=== PATIENT | male | born 1945 | race Caucasian/White ===

== ENCOUNTER → 2016-11-26 | Outpatient (CLI) | payer BC ==
[~2016-11-26] MED LIST: ASPI81TA28 PO; BRL90 PO; CHOL2000 PO; DICY20TA35 PO; LATA0.5S OP; LPT40 PO; METO25TA3 PO; MULT-506 PO; NTRSLP4 SL; PRAV20TA PO; PRLSR20 PO; VITACAP37; lupron IM
== END | disposition home or self-care (01) ==
LOC: C.MAMM 08:44
PROVIDERS: ATTEND Physician Assistant Medical
DX: C61 Malignant neoplasm of prostate (principal); T38.905 Adverse effect of unspecified hormone antagonists; M85.852 Other specified disorders of bone density and structure, left thigh

== ENCOUNTER → 2017-02-05 | Outpatient (CLI) | payer BC ==
[2017-02-05 14:27] VITALS: BP 110/68; PULSE 75; TEMP 36.9; O2SAT 97
--- NOTE | 2017-02-05 16:31 | Radiation Oncology Follow-Up ---
Radiation Oncology Follow-Up Date of Visit Feb 05, 2017. Reason For Visit One-month follow-up a cancer survivorship care plan Radiation Completion Date 01/01/17 Diagnosis (1) Prostate cancer Status: Acute Onset Date: 07/10/2015 Location: both lobes of prostate Histology Subtype: adenocarcinoma Stage: ll Permanent Comment: Rise in PSA, pretreatment PSA 10.33 Status post prostate biopsy 07/10/2015 Adenocarcinoma of the prostate Ramone 4+3 and 4+4 Status post Robotic Assisted Laporoscopic Prostatectomy 09/03/2015 Adenocarcinoma [place] 4+4 with PNI pT2c pNX Post prostatectomy rise of PSA now at 0.5 Initiation of hormone suppression. Status post completion of radiation therapy 01/01/2017 received 7040 cGy Last Edited By: Sherry Ramirez on Jan 16, 2017 08:23 History of Present Illness Mr. Engle is a 71-year-old male who has a family history of prostate cancer. The patient's father was diagnosed with prostate cancer and at age 73 from metastatic bony disease. The patient does have a son age 46 and he is going to start screening procedures. The patient was followed with prostate-specific antigens. On 08/23/2014 the prostate-specific antigen was 6.11. On 02/14/2015 the prostate-specific antigen increased to 7.95 and on 05/07/2015 the prostate- specific antigen was 10.33. The free prostate-specific antigen was 1.9 which was abnormal increasing the probability of prostate cancer. The patient was seen by the urology group of [facility] by Dr. Raul Lyle. On 07/10/2015 the patient underwent ultrasound-guided prostate biopsies. A total of 12 samples were taken. Biopsies from the right apex, right lateral apex, right mid, right lateral mid, right base, right lateral base revealed benign prostatic tissues. Biopsy from the left apex, left lateral base and left base were benign without evidence of neoplasia. Biopsies from the left lateral mid gland revealed prostatic adenocarcinoma Ramone grade 4+3 involving 10% of the core tissue sample. Biopsy from the left mid gland was positive for prostatic adenocarcinoma [place] grade 4+4 involving 20% of the core tissue sample. 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 Accession number: [id number]. Patient ultimately opted to proceed with a robotic-assisted laparoscopic prostatectomy and pelvic lymph node dissection on 09/03/2015. This confirmed a prostatic adenocarcinoma [place] grade 4+4 with a tertiary pattern 3. The largest continuous focus of tumor measured 2.5 cm representing 50% of the left lobe of the prostate. The right side showed approximate 5% involvement. Perineural invasion was seen. The bladder base, apical and posterior resection margins were negative. The tumor did not involve the seminal vesicles. Lymph nodes were sampled but no lymph node tissue was appreciated. Final pathologic stage was therefore a pT2c Nx Mx. The patient's prostate-specific antigen became undetectable. In May 2016 the prostate-specific antigen was 0.01. In August 2016 however the prostate- specific antigen increased to 0.38. On 09/11/2016 the prostate-specific antigen was repeated and it increased to 0.5. This was felt to be consistent with a biochemical failure. Dr. Raul Mccall ordered restaging procedures. A bone scan performed on 09/25/2016 showed no focal areas of increased activity to suggest metastatic disease. There was stable osseous degenerative and postsurgical changes. There was a healed left rib and sacral fractures. CT scan of the abdomen and pelvis with contrast was also performed. This showed diverticulosis without evidence of diverticulitis. There was changes consistent with a history of prostatectomy. Aortic atherosclerosis was noted. No destructive lesions were appreciated.If significantly enlarged lymph nodes were noted. Small prominent mesenteric lymph nodes were noted. Paige no evidence of metastatic disease appreciated. Dr. Mccall started the patient on hormonal suppression with a 1 month Lupron injection. He was kind enough to ask us to see the patient to discuss the role of salvage radiation. It is for this reason the patient was seen in referral. Hormone suppression was continued. He underwent CT simulation and then completed salvage radiation therapy. He received 7040 cGy. This was completed 01/01/2017. Interim History He is been doing well over the past month in regards to his urinary status. Today gives an AUA score of 4. He completed and expanded prostate cancer index composite for clinical practice and gave a score of 2 of 12 and urinary incontinence symptoms. He gave a score of 2 of 12 and urinary irritation symptoms. He gave a score of 4 of 12 of bowel symptoms. He gave a score of 9 of 12 and sexual symptoms. He gave a score of one of 12 in hormonal vitality symptoms. His total was 18 of 60. He continues on the hormone suppression. His next injection is scheduled for May. He does get hot flashes but is able to tolerate these. Allergies Coded Allergies: No Known Allergies (Unverified , 11/13/15) Home Medications Scheduled Aspirin (Aspirin Ec), 81 MG PO HS Cholecalciferol (Vitamin D3), 1 CAP PO DAILY Dicyclomine Hcl (Bentyl), 1 TAB PO BID Latanoprost (Xalatan 0.005% Oph Desirae), 1 DROPS OP HS Multivitamin (Multivitamin), 1 TAB PO DAILY Omeprazole (Prilosec), 20 MG PO DAILY Pravastatin (Pravachol ), 20 MG PO HS Vitamin E (E-400), DAILY [lupron ], 45 MG IM q 6 months Review of Systems Gastrointestinal: Symptoms: WNL GI Comments: Occ diarrhea/constipation Oral: Symptoms: No Problems Respiratory: Symptoms: WNL Urinary: Symptoms: WNL, Nocturia Comments: Nocturia x 2, Urgency, See AUA & EPIC Skin: Symptoms: No Problems Additional Notes: He completed a distress management report and answered "no" to all questions. Physical Exam Vital Signs Date Time Temp Pulse Resp B/P (MAP) Pulse Ox O2 Delivery O2 Flow Rate FiO2 02/05/17 14:27 36.9 75 16 110/68 97 Fatigue: None General Appearance: no apparent distress Eyes: normal inspection, EOMI ENT: normal ENT inspection, hearing grossly normal Respiratory/Chest: lungs clear, no respiratory distress, no accessory muscle use Cardiovascular: regular rate, rhythm, no gallop, no murmur Neurologic/Psychiatric: no motor/sensory deficits, alert, normal mood/affect Skin: warm/dry Laboratory Studies Test 02/05/17 14:30 Prostate Specific Antigen < 0.010 ng/ml (0.000-4.000) Assessment & Plan Plan: A PSA was drawn today. He'll be notified as to results. Continue follow- up with his urologist and primary care provider. We scheduled his next appointment for November 2017. This will be 6 months following his next appointment with Dr. Mccall. He stated he'll be having an injection when he sees Dr. Mccall. The suppression is planned for a total of 2 years. He is scheduled for a recheck PSA prior to his visit with Dr. Mccall. Total Time In Follow-Up I spent 20 minutes to you with the patient performing examination. I spent 15 minutes reviewing information in completing this note. Copy To Jennifer Biggs PA-C; Raul Mccall D.O.
== END | disposition home or self-care (01) ==
LOC: C.ONC 14:19
PROVIDERS: ATTEND Physician Assistant Medical
DX: Z08 Encounter for follow-up examination after completed treatment for malignant neoplasm (principal); Z92.3 Personal history of irradiation; Z85.46 Personal history of malignant neoplasm of prostate

== ENCOUNTER 2017-04-03 08:04 | Observation (INO) | payer BC ==
[~2017-04-03] VITALS: Ht 177.8 cm; Wt 97.8 kg
[2017-04-03] VITALS (13 sets, daily range): BP systolic 103–123; BP diastolic 61–77; PULSE 61–71; TEMP 36.4–36.9; O2SAT 95–99; Ht 177.8 cm; Wt 97.8 kg
[~2017-04-03 08:04] MED LIST changes: -BRL90 PO; -LPT40 PO; -NTRSLP4 SL
--- NOTE | 2017-04-03 08:16 | History & Physical Bridge Note ---
H&P Re-Evaluation Bridge Note: I have examined the patient, reviewed the History & Physical and in the interval since the performance of the History & Physical I have noted the following changes of clinical significance: No changes noted
[2017-04-03 09:05] LABS: HEMATOCRIT 40.1 % (42-52); MEAN CELL VOLUME 94.1 fL (80-100); MEAN CORPUSCULAR HEMOGLOBIN 31.9 pg (25-34); MEAN PLATELET VOLUME 9.2 fL (7.4-10.4); PLATELET COUNT 158 K/uL (130-400); RED BLOOD COUNT 4.26 M/uL (4.7-6.1)
[2017-04-03 09:24] LABS: MEAN CORPUSCULAR HGB CONC 33.9 g/dl (32-36)
[2017-04-03 09:25] LABS: CALCIUM 9.4 mg/dl (8.5-10.1); CREATININE 1.2 mg/dl (0.60-1.40); POTASSIUM 4.6 mmol/L (3.5-5.1)
[2017-04-03 09:26] LABS: PROTHROMBIN TIME (PATIENT) 10.7 SECONDS (9.0-12.0)
[2017-04-03] MEDS ORDERED: NiCARDipine HCL INJ 2.5 MG/ML 10 ML AMP ONE (10:00)
[2017-04-03] MEDS ORDERED: FENTANYL CITRATE INJ 50 MCG/1 ML 2 ML VIAL ONE (10:00)
[2017-04-03] MEDS ORDERED: HEPARIN SOD (PORCINE) 1000 UNIT/ML 10 ML VIAL ONE ×2 (10:00→11:36)
[2017-04-03] MEDS ORDERED: MIDAZOLAM HCL 1 MG/ML 2ML VIAL ONE (10:00)
[2017-04-03] MEDS ORDERED: NITROGLYCERIN/D5W 100MCG/ML 20ML SYR ONE (10:00)
[2017-04-03] MEDS ORDERED: TICAGRELOR 90 MG TAB PO ONE (11:37)
--- NOTE | 2017-04-03 11:46 | Procedure Note ---
Pre-Mod Sedation Assessment General Date of Moderate Sedation: Apr 03, 2017. Review Cardiovascular: regular rate, rhythm, no edema Abdomen: normal bowel sounds, non tender Lungs: chest non-tender, lungs clear Airway Class: III Pre-Sedation Airway Assessment Oral Cavity: WNL Able to Visualize Vocal Cords: No Short Thick Neck: No Hx of Sleep Apnea: No Smoking Status: Former Smoker Mallampati Classification: Class III ASA Classification: Class III Procedure Planning Contraindications-for Mod Sed: None Yes Notes The planned sedation has been discussed with the patient and consent obtained. I have identified the patient, determined the appropriateness of sedation and have assessed the patient immediately prior to the procedure. All medicine(s) and interventions are by my order.
--- NOTE | 2017-04-03 11:47 | Procedure Note ---
Post-Mod Sedation Assessment General Date of Moderate Sedation Apr 03, 2017. Vital Signs: Vital Signs Past 12 Hours Date Time Temp Pulse Resp B/P (MAP) Pulse Ox O2 Delivery O2 Flow Rate FiO2 04/03/17 11:35 65 16 112/61 (78) 95 Room Air 04/03/17 08:34 36.6 68 18 122/61 99 Room Air Review - Discharge Criteria Vital Signs Stable: Yes Alert/Oriented/Conversant: Yes Returned to Baseline Mental St: Yes Nausea Absent/Minimal: Yes Pain/Discomfort/Absent/Minimal: Yes Normal/Baseline Respirations: Yes Active Bleeding?: No Pt Received D/C Instructions: N/A Prescriptions Given: None Specific Proced. D/C Criteria Distal Pulses Present (Cardiac: Yes Groin site assessed-Card Cath: N/A Voided Prior To Discharge: N/A Discharged Patients Adult Escort/Transportation: Yes
--- NOTE | 2017-04-03 12:08 | Cardiac Catheterization ---
Procedure Note Procedure Date Apr 03, 2017. Pre-Procedure Diagnosis Angina AUC Score 7 Post-Procedure Diagnosis Severe CAD, Successful PCI, Normal Intracardiac Pressures Procedure(s) Performed Coronary Angiography, Left Heart Cath, Drug Eluting Stent Commercial Light Fixture Assembler Luis F Engine Service Repairer(s) Nam Estimated Blood Loss 20 Medication(s) Fentanyl, Heparin, Nitroglycerin, Versed, Lidocaine 1% Ticagrelor Summary of Findings Indication: Accelerating typical angina Access: 6Fr slender right radial artery Catheters: [place], JL3.5; JR4 guide Findings: LM - Short, luminal irregularities. LAD - Moderate caliber, luminal irregularities, wraps around apex. 1st diagonal with 90% ostial stenosis. Circumflex - Moderate caliber vessel, 30% proximal stenosis, OM2 with focal 99% stenosis. RCA - Dominant, diffuse up to 95% stenosis in the proximal to mid segment; diffuse mid to distal disease up to 80%. Luminal irregularities in PDA/PLB. LVEDP - 5 -- PCI -- Antithrombotic therapy: Heparin, Ticagrelor Procedure: RCA cannulated with JR4 guide Geothermal Operations Engineer 50 wire passed across lesions into distal vessel Distal to proximal segments predilated with 2.5 compliant balloon Distal RCA stented with 2.5 x 30 Dendron Resolute Mid RCA stented with 2.75 x 30 [place] Resolute Proximal-mid RCA stented with 3.0 x 22 Dendron Resolute Stents post-dilated with 3.25 noncompliant balloon IC vasodilators administered for spasm Post procedure LOLLY 3 flow, stent well expanded with minimal residual stenosis and no apparent cardiac complications. Arterial Closure: TR Band Summary: 1. Severe multi-vessel coronary artery disease - Diffuse RCA disease 95% early-mid, 80% mid to distal segment disease - OM2 with focal 99% stenosis - 1st diagonal with 90% proximal stenosis 2. Normal intracardiac filling pressure 3. Successful PCI of RCA with proximal to distal RCA with 3 overlapping drug- eluting stents (3.0 x 22, 2.75 x 30, 2.5 x 30 [place] MAGALY) Recommendations: To PCU for continued monitoring Loaded with Ticagrelor 180 mg in carpenter labor supervisor Continue dual-antiplatelet therapy for 1 year Continue statin, ASCVD risk factor modification Consult cardiac Rehab Plan for staged PCI of OM2 +/- diagonal in next 1-2 weeks. Hemodynamics Rest Ao: 96/58/75 Final Ao: 102/55/76 LV: 96/5 Recommendations PCI without planned CABG Specimens None Radiation Exposure (mGy) 4393 Contrast (mls) 200 Visi Fluids (cc crystalloids) 152 NS Drains None Anesthesia moderate Procedural Complication(s) None Disposition PCU ACC Data Cardiac Status Clinical evaluation leading to the procedure CAD Presntation: Unstable angina Anginal Classification: CCS III Heart Failure: No, NYHA Class: CCS I Cardiogenic Shock w/in 24Hrs: No Cardiac Arrest w/in 24Hrs: No Imaging studies past 6 months: No Stress studies past 6 months: No Coronary Anatomy Dominant: Right Left Main (% Stenosis): Normal LAD (% Stenosis): Normal D1 (% Stenosis): Proximal (90) Circumflex (% Stenosis): Proximal (30) OM2 (% Stenosis): Proximal (99) RCA (% Stenosis): Mid (95), Distal (80) Diagnostic Physician's Name: Raul Kerns MD Status: Elective Closure Device Percutaneous Entry Location: Radial Closure Device: Radial Band Recommendations: PCI without planned CABG PCI Indication: Unstable Angina Lesion Segment Name: RCA Culprit Artery: Yes Stenosis Prior to Rx (%): 95 Chronic Total Occlusion: No IVUS: No FFR: No Pre-Procedure LOLLY Flow: 3 Previously Treated Lesion: No Lesion Complexity: Non-High/Non-C Lesion Length (mm): 60 Thrombus Present: No Bifurcation Lesion: No Guidewire Across Lesion: Yes Guidewire: Stenosis Post-Procedure (%): 0 Post-Procedure LOLLY Flow: 3 Device(s) Deployed: Yes Intraprocedure Events Significant Dissection: No Perforation: No
[2017-04-03] MEDS ORDERED: NITROGLYCERIN 0.4 MG SL PER TAB CHARGE SL PRN (12:30)
[2017-04-03] MEDS ORDERED: SODIUM CHLORIDE 0.9% 1000ML 1,000 ML IV SCH (12:30)
[2017-04-03] MEDS ORDERED: ACETAMINOPHEN 325 MG TAB PO PRN (12:30)
[2017-04-03] MEDS ORDERED: ONDANSETRON INJ 2 MG/ML 2 ML VIAL IV PRN (12:30)
[2017-04-03] MEDS ORDERED: IV FLUIDS COMPLETED PRN (12:45)
[2017-04-03] MEDS ORDERED: ASPIRIN 81 MG ECTAB PO SCH (21:00)
[2017-04-03] MEDS ORDERED: LATANOPROST 0.005% OP SOLN 2.5 ML BTL OP SCH (21:00)
[2017-04-03] MEDS: TICAGRELOR 90 MG TAB PO SCH (21:49)
[2017-04-03] MEDS: DICYCLOMINE HCL 20 MG TAB PO SCH (21:50)
[2017-04-04 02:38] VITALS: BP 111/55; PULSE 79; TEMP 36.9; O2SAT 96
[2017-04-04] MEDS ORDERED: COUGH DROP (SUGAR FREE) LOZ 24 LOZ/1 BOX ONE (06:41)
[2017-04-04] MEDS ORDERED: NURSING VERBAL MED ORDER ONE (06:45)
[2017-04-04] MEDS ORDERED: COUGH DROP (SUGAR FREE) LOZ 24 LOZ/1 BOX PO PRN (06:45)
[2017-04-04 07:46] LABS: BASO % 0.4 %; BASO ABS # 0.02 K/uL (0-0.2); COMPLETE YES; EOS % 3.8 %; HEMATOCRIT 39.4 % (42-52); IG% 0.2 %; LYMPH % 14.3 %; LYMPH ABS # 0.72 K/uL (1.2-3.4); MEAN CELL VOLUME 92.7 fL (80-100); MEAN CORPUSCULAR HEMOGLOBIN 32.2 pg (25-34); MEAN CORPUSCULAR HGB CONC 34.8 g/dl (32-36); MEAN PLATELET VOLUME 9.5 fL (7.4-10.4); MONO % 9.5 %; NEUT % 71.8 %; PLATELET COUNT 156 K/uL (130-400); RED BLOOD COUNT 4.25 M/uL (4.7-6.1); WHITE BLOOD COUNT 5.03 K/uL (4.8-10.8)
[2017-04-04 07:59] VITALS: BP 123/75; PULSE 70; TEMP 36.8; O2SAT 97
[2017-04-04 08:26] LABS: BUN/CREATININE RATIO 15.8 (10-20); CALCIUM 9.1 mg/dl (8.5-10.1); CREATININE 1.1 mg/dl (0.60-1.40); POTASSIUM 3.8 mmol/L (3.5-5.1)
[2017-04-04] MEDS ORDERED: METOPROLOL SUCC 25MG EXT REL TAB PO SCH (09:00)
[2017-04-04] MEDS ORDERED: ATORVASTATIN 40 MG TAB PO SCH (09:00)
[2017-04-04] MEDS ORDERED: PANTOprazole SOD 40 MG TAB PO SCH (09:00)
[2017-04-04] MEDS ORDERED: CHOLECALCIFEROL 1000 INTER.UNIT TAB PO SCH (09:00)
[2017-04-04] MEDS ORDERED: MULTIVITAMIN TAB PO SCH (09:00)
[2017-04-04] MEDS ORDERED: LPT40 PO (09:52)
[2017-04-04] MEDS ORDERED: BRL90 PO (09:52)
[2017-04-04] MEDS ORDERED: NTRSLP4 SL (09:52)
--- NOTE | 2017-04-04 09:54 | Discharge Instructions ---
Discharge Instructions Procedure Procedure Date: Apr 04, 2017. Reason for Visit: Chest Pain *Dr Kerns Doing*. Discharge Discharge Date: Apr 04, 2017. Discharge Diagnosis: Coronary artery disease post coronary stenting Last Recorded Wt (Kilograms): 97.800 Anesthesia Post Anesthesia Instructions: If you have had General Anesthesia or IV Sedation: * Do not drive today. * Resume driving when surgeon permits. * Do not make important decisions or sign legal documents today. * Call surgeon for: 1. Temperature elevations greater than 101 degrees F. 2. Uncontrollable pain. 3. Excessive bleeding. 4. Persistent nausea and vomiting. 5. Medication intolerance (nausea, vomiting or rash). * For nausea and vomiting use only clear liquids such as: tea, soda, bouillon until nausea subsides, then gradually increase diet as tolerated. * If you have any concerns or questions, call your surgeon's office. If physician is unavailable and it is an emergency, call 911 or go to the nearest emergency room. Instructions Activity Recommendations: limitations as noted below Recommended Home Diet: low cholesterol Allergies: Coded Allergies: No Known Allergies (Unverified , 11/13/15) Follow Up Additional Instructions: ACTIVITY RECOMMENDATIONS: It is common to feel weak and fatigue for a few days. * Do not drive or operate any motorized equipment for the next 2 days. * Limit stair usage (2 or 3 trips a day only) for the next 2 days. * Do not lift anything heavier than 10 pounds for the next three days. * Do not engage in vigorous exercise or any sports for the next five days. * You may shower the day after your procedure, but do not immerse the area for three days. Cleanse the site gently with soap and water. SPECIAL CARE INSTRUCTIONS: * You may replace the pressure dressing or band-aid the morning after the procedure. * After your procedure, it is normal to have a small bruise or small lump at the site. Examine your site daily for any change in the bruise or lump, redness, swelling, drainage or numbness. Notify your doctor if any change. BLEEDING: * If there is a small amount of bleeding at the site, lie down and apply firm pressure with a clean cloth for ten minutes. When the bleeding stops, lie quietly keeping the procedure limb straight for six hours. Notify your doctor as soon as possible. * If the bleeding does not stop after ten minutes or if there is a large amount of bleeding or spurting, call 911 immediately. Continue to lie down and hold firm pressure until help arrives. SKIN IRRITATION: * You may experience some redness and/or swelling in the area where radiation was administered. If any skin irritation occurs, please contact your family physician. FOLLOW UP VISIT: Keep any scheduled doctor appointments. Follow-up with: Plan for repeat cardiac catheterization with stenting on next week. Cardiology office will call you on thursday. If issues in interim call Dr. Kerns [phone] [facility] Recommendations: Call your doctor if: * Temperature above 101 degrees * Pain not relieved by pain medicine ordered * There is increased drainage or redness from any incision * You have any unanswered questions or concerns. Your Doctors Instructions noted above were prepared by provider Jamie Kerns. Patient Signature Section: Patient Instructions Signature Page Ramses Engle Patient (or Guardian) Signature/Date: I have read and understand the instructions given to me by my caregivers. Caregiver/RN/Doctor Signature/Date: The above-named patient and/or guardian has received patient instructions on this date. + Original Patient Signature Page (only) stays with chart. Please make copy for patient.
[2017-04-04] MEDS: TICAGRELOR 90 MG TAB PO SCH (09:58)
[2017-04-04] MEDS: DICYCLOMINE HCL 20 MG TAB PO SCH (09:58)
[2017-04-04 10:30] VITALS: BP 123/75; PULSE 70; TEMP 36.8; O2SAT 97
[2017-04-09] MEDS ORDERED: PRAV20TA PO (07:11)
--- NOTE | 2017-04-23 01:03 | DISCHARGE SUMMARY ---
PROCEDURES: 1. Coronary angiography. 2. PCI of RCA with 3 overlapping drug-eluting stents. HISTORY OF PRESENT ILLNESS: Mr. Engle is a 71-year-old man with history of dyslipidemia, GERD, peptic ulcer disease and prostate cancer; who was initially seen in the outpatient setting for accelerating angina over the last several weeks. The patient had no prior cardiac history prior to his initial presentation. HOSPITAL COURSE: The patient underwent diagnostic angiography via his right radial artery. Cardiac catheterization showed his LAD to be patent with luminal irregularities, his first diagonal was small and had 90% ostial stenosis. Circumflex was a moderate caliber vessel with a focal 99% stenosis in his second obtuse marginal. His right coronary artery was dominant and had diffuse up to 95% stenosis in the proximal and mid segment and diffuse [id number] disease up to 80%. Decision was made to proceed with PCI of his RCA, and ended up having 3 overlapping drug-eluting stents placed (3.0 x 22, 2.75 x 30, 2.5 x 30) [place] drug-eluting stents. A good angiographic result was obtained. The patient was admitted to telemetry for observation post procedure. He had no recurrent chest pain overnight. He had no significant arrhythmia on telemetry. On the morning of discharge, patient was feeling well and was thought safe for discharge to home. Plan was for patient to return in the next 1-2 weeks for staged intervention of his obtuse marginal and potentially his small first diagonal. DISCHARGE MEDICATIONS: The patient was discharged on atorvastatin 80, sublingual nitroglycerin tabs, ticagrelor 90 mg b.i.d., aspirin 81, cholecalciferol 2000 units daily, Bentyl 1 tab p.o. b.i.d., latanoprost eyedrops 1 drop at bedtime, multivitamin 1 tab daily, omeprazole 20 mg daily, vitamin E and Lupron injections q. 6 hours. FOLLOWUP: The patient will follow up for procedure as discussed above. NICOLAS
== END 2017-04-04 11:20 | disposition home or self-care (01) ==
LOC: C.CATH 08:04 → C.2T 11:25 → ENRESERV 11:25 → EDBEDREQ 12:09
PROVIDERS: ADMIT Internal Medicine Interventional Cardiology; ATTEND Internal Medicine Interventional Cardiology
DX: I25.119 Atherosclerotic heart disease of native coronary artery with unspecified angina pectoris (principal); I10 Essential (primary) hypertension; E78.5 Hyperlipidemia, unspecified; K21.9 Gastro-esophageal reflux disease without esophagitis; N40.0 Benign prostatic hyperplasia without lower urinary tract symptoms; M48.06 Spinal stenosis, lumbar region; Z79.82 Long term (current) use of aspirin; Z87.891 Personal history of nicotine dependence; Z85.46 Personal history of malignant neoplasm of prostate; Z90.79 Acquired absence of other genital organ(s); Z80.42 Family history of malignant neoplasm of prostate; Z80.3 Family history of malignant neoplasm of breast; Z82.62 Family history of osteoporosis

== ENCOUNTER → 2017-04-09 | Day surgery (SDC) | payer BC ==
[~2017-04-09] VITALS: Ht 177.8 cm; Wt 95.0 kg
[~2017-04-09] MED LIST changes: +ASPIRIN 81 MG CHEW ONE; +BRL90 PO; +FENTANYL CITRATE INJ 50 MCG/1 ML 2 ML VIAL ONE; +HEPARIN SOD (PORCINE) 1000 UNIT/ML 10 ML VIAL ONE; +LPT40 PO; +MIDAZOLAM HCL 1 MG/ML 2ML VIAL ONE; +NITROGLYCERIN/D5W 100MCG/ML 20ML SYR ONE; +NTRSLP4 SL; +NiCARDipine HCL INJ 2.5 MG/ML 10 ML AMP ONE
[2017-04-09 07:19] VITALS: BP 121/65; PULSE 67; TEMP 36.6; O2SAT 98; Ht 177.8 cm; Wt 95.0 kg
--- NOTE | 2017-04-09 10:41 | Procedure Note ---
Pre-Mod Sedation Assessment General Date of Moderate Sedation: Apr 09, 2017. Vital Signs: Vital Signs Past 12 Hours Date Time Temp Pulse Resp B/P (MAP) Pulse Ox O2 Delivery O2 Flow Rate FiO2 04/09/17 07:19 36.6 67 16 121/65 98 Room Air Review Cardiovascular: regular rate, rhythm, no edema Abdomen: normal bowel sounds, non tender Lungs: chest non-tender, lungs clear Airway Class: II Pre-Sedation Airway Assessment Oral Cavity: WNL Able to Visualize Vocal Cords: No Short Thick Neck: No Hx of Sleep Apnea: No Smoking Status: Never Smoker Mallampati Classification: Class III ASA Classification: Class II Procedure Planning Contraindications-for Mod Sed: None Yes Notes The planned sedation has been discussed with the patient and consent obtained. I have identified the patient, determined the appropriateness of sedation and have assessed the patient immediately prior to the procedure. All medicine(s) and interventions are by my order.
--- NOTE | 2017-04-09 10:42 | Procedure Note ---
Post-Mod Sedation Assessment General Date of Moderate Sedation Apr 09, 2017. Vital Signs: Vital Signs Past 12 Hours Date Time Temp Pulse Resp B/P (MAP) Pulse Ox O2 Delivery O2 Flow Rate FiO2 04/09/17 07:19 36.6 67 16 121/65 98 Room Air Review - Discharge Criteria Vital Signs Stable: Yes Alert/Oriented/Conversant: Yes Returned to Baseline Mental St: Yes Nausea Absent/Minimal: Yes Pain/Discomfort/Absent/Minimal: Yes Normal/Baseline Respirations: Yes Active Bleeding?: No Pt Received D/C Instructions: N/A Prescriptions Given: None Specific Proced. D/C Criteria Distal Pulses Present (Cardiac: Yes Groin site assessed-Card Cath: N/A Voided Prior To Discharge: N/A Discharged Patients Adult Escort/Transportation: Yes
--- NOTE | 2017-04-09 11:10 | Cardiac Catheterization ---
Procedure Note Procedure Date Apr 09, 2017. Pre-Procedure Diagnosis Angina AUC Score 7 Post-Procedure Diagnosis Severe CAD, Successful PCI Procedure(s) Performed Left Heart Cath, PTCA, Drug Eluting Stent Sr. Operations Manager Luis F Environmental Systems Coordinator(s) Edward Estimated Blood Loss 15 Medication(s) Fentanyl, Heparin, Nicardipine, Nitroglycerin, Versed, Lidocaine 1% Summary of Findings Indication: Staged PCI Access: 6Fr right radial artery Catheters: EBU 3.5 guide Findings: Patient with accelerating angina leading to cardiac cath and PCI of RCA last week. Returns today for staged PCI of OM2 -- PCI -- Antithrombotic therapy: Heparin, on ticagrelor Procedure: LM cannulated with EBU 3.5 guide BMW wire passed across lesion into distal vessel OM2 lesion predilated with 2.0 compliant balloon Dilated lesion stented with 2.25 x 22 Resolute MAGALY Stent post-dilated with stent balloon IC vasodilators administered for spasm Post procedure LOLLY 3 flow, stent well expanded with minimal residual stenosis and no apparent cardiac complications. BMW wire removed from OM and placed into 1st diagonal Angioplasty of proximal 1st diagonal 90% stenosis with 2.0 compliant balloon. Lesion appeared calcified and unable to fully expand balloon. As 1st diagonal was small vessel (~2.0) decision made to forgo more aggressive attempts at lesion dilation/stenting. No additional stents placed. Post PTCA stenosis unchanged. LOLLY 3 flow, no apparent complications. Arterial Closure: TR Band Summary: 1. Successful PCI of OM2 with single MAGALY (2.25 x 22 Resolute). 2. Attempted PTCA of small 1st diagonal with compliant balloon unsuccessful. Recommendations: To medical laboratory assistant holding for additional monitoring. If stable will discharge later today. Continue dual-antiplatelet therapy with ASA/ticagrelor for 1 year Continue statin, ASCVD risk factor modification Cardiac rehab Continued anti-anginals for residual disease -- if in the future were to have refractory angina more aggressive attempts at stenting of 1st diagonal could be considered. Hemodynamics Rest Ao: 90/52/68 Final Ao: 81/51/62 LV: 112/4 Recommendations PCI without planned CABG Specimens None Radiation Exposure (mGy) 2395 Contrast (mls) 135 Visipaque Fluids (cc crystalloids) 150 ml Drains None Anesthesia Moderate Procedural Complication(s) None Disposition Internal Combustion Engine Assembler Holding/Recovery ACC Data Cardiac Status Clinical evaluation leading to the procedure CAD Presntation: Unstable angina Anginal Classification: CCS III Heart Failure: NYHA Class: CCS I Closure Device Closure Device: Radial Band Recommendations: PCI without planned CABG Lesion Segment Name: OM2 Culprit Artery: Yes Stenosis Prior to Rx (%): 95 Chronic Total Occlusion: No IVUS: No FFR: No Pre-Procedure LOLLY Flow: 3 Previously Treated Lesion: No Lesion Complexity: Non-High/Non-C Lesion Length (mm): 12 Thrombus Present: No Bifurcation Lesion: No Guidewire Across Lesion: Yes Guidewire: Stenosis Post-Procedure (%): 0 Post-Procedure LOLLY Flow: 3 Device(s) Deployed: Yes Intraprocedure Events Significant Dissection: No Perforation: No
--- NOTE | 2017-04-09 12:05 | Discharge Instructions ---
Discharge Instructions Procedure Procedure Date: Apr 09, 2017. Reason for Visit: Chest Pain, Krishnamurthy, *Dr Kerns Doing*. Discharge Discharge Date: Apr 09, 2017. Discharge Diagnosis: Coronary artery disease post stenting Last Recorded Wt (Kilograms): 95 Anesthesia Post Anesthesia Instructions: If you have had General Anesthesia or IV Sedation: * Do not drive today. * Resume driving when surgeon permits. * Do not make important decisions or sign legal documents today. * Call surgeon for: 1. Temperature elevations greater than 101 degrees F. 2. Uncontrollable pain. 3. Excessive bleeding. 4. Persistent nausea and vomiting. 5. Medication intolerance (nausea, vomiting or rash). * For nausea and vomiting use only clear liquids such as: tea, soda, bouillon until nausea subsides, then gradually increase diet as tolerated. * If you have any concerns or questions, call your surgeon's office. If physician is unavailable and it is an emergency, call 911 or go to the nearest emergency room. Instructions Activity Recommendations: limitations as noted below Recommended Home Diet: resume previous diet Allergies: Coded Allergies: No Known Allergies (Unverified , 11/13/15) Follow Up Additional Instructions: ACTIVITY RECOMMENDATIONS: It is common to feel weak and fatigue for a few days. * Do not drive or operate any motorized equipment for the next three days. * Limit stair usage (2 or 3 trips a day only) for the next three days. * Do not lift anything heavier than 10 pounds for the next three days. * Do not engage in vigorous exercise or any sports for the next five days. * You may shower the day after your procedure, but do not immerse the area for three days. Cleanse the site gently with soap and water. SPECIAL CARE INSTRUCTIONS: * You may replace the pressure dressing or band-aid the morning after the procedure. * After your procedure, it is normal to have a small bruise or small lump at the site. Examine your site daily for any change in the bruise or lump, redness, swelling, drainage or numbness. Notify your doctor if any change. BLEEDING: * If there is a small amount of bleeding at the site, lie down and apply firm pressure with a clean cloth for ten minutes. When the bleeding stops, lie quietly keeping the procedure limb straight for six hours. Notify your doctor as soon as possible. * If the bleeding does not stop after ten minutes or if there is a large amount of bleeding or spurting, call 911 immediately. Continue to lie down and hold firm pressure until help arrives. SKIN IRRITATION: * You may experience some redness and/or swelling in the area where radiation was administered. If any skin irritation occurs, please contact your family physician. FOLLOW UP VISIT: Keep any scheduled doctor appointments. Follow-up with: Follow-up with Francisco Rivera next week. Madhu Wesley Recommendations: Call your doctor if: * Temperature above 101 degrees * Pain not relieved by pain medicine ordered * There is increased drainage or redness from any incision * You have any unanswered questions or concerns. Your Doctors Instructions noted above were prepared by provider Jamie Kerns. Patient Signature Section: Patient Instructions Signature Page Ramses Engle Patient (or Guardian) Signature/Date: I have read and understand the instructions given to me by my caregivers. Caregiver/RN/Doctor Signature/Date: The above-named patient and/or guardian has received patient instructions on this date. + Original Patient Signature Page (only) stays with chart. Please make copy for patient.
[2017-04-09 16:00] VITALS: BP 108/62; PULSE 64; O2SAT 97
--- NOTE | 2017-04-19 14:55 | DISCHARGE SUMMARY ---
PROCEDURES: 1. PCI of OM2 with 2.25 x 22 mm [place] drug-eluting stent. 2. Attempted PTCA of small first diagonal with compliant balloon. HISTORY OF PRESENT ILLNESS: Mr. Engle is a 71-year-old male with a history of dyslipidemia, GERD, peptic ulcer disease, prostate cancer and recently diagnosed multivessel coronary artery disease who presented on day of admission for a staged PCI of his obtuse marginal. The patient had recently presented to the outpatient cardiology office with progressive accelerating angina. He underwent a cardiac catheterization on 04/03/2017 where he was noted to have 95% diffuse stenosis in his proximal mid RCA and diffuse mid to distal upto 80% stenosis. He was also noted to have a 99% stenosis in his OM2 and a 90% stenosis in his first diagonal. He underwent PCI with 3 drug-eluting stents placed to his RCA with good angiographic result. Plan was for staged PCI of OM, possible first diagonal. HOSPITAL COURSE: PCI was undertaken via right radial artery with a successful drug-eluting stent placement to his obtuse marginal with good angiographic result. Attempt was made to angioplasty his first diagonal but lesion did not fully expand with a 2.0 balloon and as the vessel was small decision was made to forgo further attempts at intervention. The patient remained chest pain free throughout procedure. He was taken post-procedure to the cardiac laborer wharf holding area where he was monitored for 5 hours. He had no recurrent chest pain. He had no access site complications. He was feeling well and was thought safe for discharge. The patient was discharged on his previous aspirin and ticagrelor, which we will plan to continue for at least the next year. He will follow up with cardiology clinic within the next week. DISCHARGE MEDICATIONS: Aspirin 81, atorvastatin 80, cholecalciferol 2000 units 1 tab daily, Bentyl 1 tab p.o. b.i.d., latanoprost eyedrops, metoprolol XL 25 mg daily, multivitamin 1 tab, nitroglycerin sublingual tabs 0.4 mg p.r.n., omeprazole 20 mg daily, ticagrelor 90 mg b.i.d., vitamin E and Lupron injections q. 6 [address]. [facility]
== END | disposition home or self-care (01) ==
LOC: C.CATH 07:01
PROVIDERS: ATTEND Internal Medicine Interventional Cardiology
DX: I25.119 Atherosclerotic heart disease of native coronary artery with unspecified angina pectoris (principal); R06.09 Other forms of dyspnea; I10 Essential (primary) hypertension; E78.5 Hyperlipidemia, unspecified; E78.00 Pure hypercholesterolemia, unspecified; K21.9 Gastro-esophageal reflux disease without esophagitis; N40.0 Benign prostatic hyperplasia without lower urinary tract symptoms; M48.06 Spinal stenosis, lumbar region; Z87.891 Personal history of nicotine dependence; Z79.82 Long term (current) use of aspirin; Z85.46 Personal history of malignant neoplasm of prostate; Z90.79 Acquired absence of other genital organ(s); Z82.62 Family history of osteoporosis; Z80.42 Family history of malignant neoplasm of prostate; Z80.3 Family history of malignant neoplasm of breast

== ENCOUNTER → 2017-12-03 | Outpatient (CLI) | payer BC ==
[~2017-12-03] MED LIST changes: +AMOX500C3 PO; -ASPIRIN 81 MG CHEW ONE; +ATOR-26 PO; +BRIN1SUS OPB; -BRL90 PO; +DICY20TA10 PO; -DICY20TA35 PO; -FENTANYL CITRATE INJ 50 MCG/1 ML 2 ML VIAL ONE; -HEPARIN SOD (PORCINE) 1000 UNIT/ML 10 ML VIAL ONE; +LATA0.009 OPB; -LATA0.5S OP; +LEUP11.23; -LPT40 PO; +LUPRON INJ; -METO25TA3 PO; +METO25TA4 PO; -MIDAZOLAM HCL 1 MG/ML 2ML VIAL ONE; -NITROGLYCERIN/D5W 100MCG/ML 20ML SYR ONE; +NTRGSL/4 UT; -NTRSLP4 SL; -NiCARDipine HCL INJ 2.5 MG/ML 10 ML AMP ONE; -PRAV20TA PO; +TICA1TAB; +TICA1TAB PO; +TRAM-10 PO; -VITACAP37; +VITACAP37 PO; -lupron IM
[2017-12-03 13:03] VITALS: BP 138/82; PULSE 64; TEMP 36.3; O2SAT 96
--- NOTE | 2017-12-04 09:13 | Radiation Oncology Follow-Up ---
Radiation Oncology Follow-Up Date of Visit Dec 03, 2017. Reason For Visit Six-month follow-up Radiation Completion Date 01/01/17 Diagnosis (1) Prostate cancer Status: Acute Onset Date: 07/10/2015 Location: Both lobes the prostate Histology Subtype: Adenocarcinoma Stage: ll Permanent Comment: Rise in PSA, pretreatment PSA 10.33 Status post prostate biopsy 07/10/2015 Adenocarcinoma of the prostate [place] 4+3 and 4+4 Status post Robotic Assisted Laporoscopic Prostatectomy 09/03/2015 Adenocarcinoma [place] 4+4 with PNI pT2c pNX Post prostatectomy rise of PSA now at 0.5 Initiation of hormone suppression. Status post completion of radiation therapy 01/01/2017 received 7040 cGy Last Edited By: Sherry Ramirez on Jan 16, 2017 08:23 History of Present Illness Mr. Engle has a family history of prostate cancer. The patient's father was diagnosed with prostate cancer and at age 73 from metastatic bony disease. The patient does have a son age 46 and he is going to start screening procedures. The patient was followed with prostate-specific antigens. On 08/23 the prostate-specific antigen was 6.11. On 02/14/2015 the prostate- specific antigen increased to 7.95 and on 05/07/2015 the prostate-specific antigen was 10.33. The free prostate-specific antigen was 1.9 which was abnormal increasing the probability of prostate cancer. The patient was seen by the urology group of [facility] by Dr. Raul Lyle. On 08/2014 the patient underwent ultrasound-guided prostate biopsies. A total of 12 samples were taken. Biopsies from the right apex, right lateral apex, right mid, right lateral mid, right base, right lateral base revealed benign prostatic tissues. Biopsy from the left apex, left lateral base and left base were benign without evidence of neoplasia. Biopsies from the left lateral mid gland revealed prostatic adenocarcinoma [place] grade 4+3 involving 10% of the core tissue sample. Biopsy from the left mid gland was positive for prostatic adenocarcinoma [place] grade 4+4 involving 20% of the core tissue sample. 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 Accession number: [id number]. Patient ultimately opted to proceed with a robotic-assisted laparoscopic prostatectomy and pelvic lymph node dissection on 09/03/2015. This confirmed a prostatic adenocarcinoma [place] grade 4+4 with a tertiary pattern 3. The largest continuous focus of tumor measured 2.5 cm representing 50% of the left lobe of the prostate. The right side showed approximate 5% involvement. Perineural invasion was seen. The bladder base, apical and posterior resection margins were negative. The tumor did not involve the seminal vesicles. Lymph nodes were sampled but no lymph node tissue was appreciated. Final pathologic stage was therefore a pT2c Nx Mx. The patient's prostate-specific antigen became undetectable. In May 2016 the prostate-specific antigen was 0.01. In August 2016 however the prostate- specific antigen increased to 0.38. On 09/11/2016 the prostate-specific antigen was repeated and it increased to 0.5. This was felt to be consistent with a biochemical failure. Dr. Raul Mccall ordered restaging procedures. A bone scan performed on 09/25/2016 showed no focal areas of increased activity to suggest metastatic disease. There was stable osseous degenerative and postsurgical changes. There was a healed left rib and sacral fractures. CT scan of the abdomen and pelvis with contrast was also performed. This showed diverticulosis without evidence of diverticulitis. There was changes consistent with a history of prostatectomy. Aortic atherosclerosis was noted. No destructive lesions were appreciated.If significantly enlarged lymph nodes were noted. Small prominent mesenteric lymph nodes were noted. Paige no evidence of metastatic disease appreciated. Dr. Mccall started the patient on hormonal suppression with a 1 month Lupron injection. He was kind enough to ask us to see the patient to discuss the role of salvage radiation. It is for this reason the patient was seen in referral. Hormone suppression was continued. He underwent CT simulation and then completed salvage radiation therapy. He received 7040 cGy. This was completed 01/01/2017. Interim History He has been doing well from urinary standpoint over the past 6 months. He gave an AUA score of 5. He does not require any medication to help with urination. He completed and expanded prostate cancer index composite for clinical practice and gave a score of 2 of 12 and urinary incontinence symptoms. He gave a score of 1 of 12 and urinary irritation symptoms. He gave a score of 0 12 and bowel symptoms. He gave a score of 12 of 12 and sexual symptoms. He gave a score of 4 of 12 and hormonal vitality symptoms. His total was 19 of 60. His hormone suppression continues through Dr. Mccall's office. He continues to have hot flashes. He had a recheck PSA October 23, 2017 that was less than 0.01. Prior to that the PSA was less than 0.010 February 05, 2017. He was hospitalized and underwent coronary artery stenting. Total of 4 stents have been placed. He had been having chest discomfort. He was having fatigue and found very difficult to keep up with family members when walking while on 2 recent medications. When he returned home he saw his primary care physician who referred him to cardiology. He immediately had a catheterization and then the stents placed. He is up-to-date on DEXA scanning. We had obtained a scan last year. This did show one area of moderate change. Because of the hormone suppression will continue to monitor him with DEXA scans. He is not due until next November. Allergies Coded Allergies: No Known Allergies (Unverified , 11/24/17) Home Medications Scheduled Amoxicillin (Amoxil), 1 CAP PO DIRECTED Aspirin (Aspirin Ec), 81 MG PO HS Atorvastatin (Lipitor), 80 MG PO QPM Atorvastatin (Lipitor), 1 TAB PO DAILYpm Brinzolamide Oph (Azopt Oph), 1 DROP OPB BID Cholecalciferol (Vitamin D3), 1 CAP PO DAILY Dicyclomine Hcl (Dicyclomine Hcl), 2 TAB PO BID Latanoprost (Xalatan 0.005% Oph Desirae), 1 DROPS OPB HS Leuprolide Acetate (Lupron [place]), Q6MO Metoprolol Succinate (Toprol Xl), 25 MG PO QAM Multivitamin (Multivitamin), 1 TAB PO QAM Nitroglycerin (Nitrostat), 0.4 MG UT PRN Omeprazole (Prilosec), 20 MG PO QAM Ticagrelor (Brilinta), 1 TAB PO BID Ticagrelor (Brilinta), BID Vitamin E (E-400), 1 TAB PO QAM [Lupron], Unknown Dose INJ [id number] Scheduled PRN Nitroglycerin (Nitrostat), 0.4 MG UT PRN PRN for Chest Pain Review of Systems Gastrointestinal: Symptoms: WNL GI Comments: Occ diarrhea/constipation Oral: Symptoms: No Problems Respiratory: Symptoms: WNL Urinary: Symptoms: WNL Comments: Nocturia x 2, Urgency, See AUA & EPIC Skin: Symptoms: No Problems Physical Exam Vital Signs Date Time Temp Pulse Resp B/P (MAP) Pulse Ox O2 Delivery O2 Flow Rate FiO2 12/03/17 13:03 36.3 64 20 138/82 96 Fatigue: None General Appearance: no apparent distress Eyes: normal inspection, EOMI ENT: normal ENT inspection, hearing grossly normal Respiratory/Chest: lungs clear, no respiratory distress, no accessory muscle use Cardiovascular: regular rate, rhythm, no gallop, no murmur Abdomen: non tender, soft, no organomegaly Anal / Rectum: Normal sphincter tone. Prostate bed is flat. No rectal masses no rectal bleeding. Extremities: no pedal edema Neurologic/Psychiatric: no motor/sensory deficits, alert, normal mood/affect Skin: warm/dry Pain Management Patient Reports Pain: No Pain Location: None Patient Preferred Pain Scale: 0 - 10 Initial Pain Intensity: 0.0 Pain Management Plan He denies pain therefore requires no pain management. Laboratory Laboratory Results: were reviewed Laboratory Comments: PSAs reviewed in the interim history. Pathology Pathology Results: were reviewed, and pertinent findings noted in HPI Imaging Imaging Studies: were reviewed Imaging Comments DEXA scanning reviewed in the interim history. Assessment & Plan Plan: Continue regular follow-up with his urologist and primary care provider. He is having recheck PSAs with orders given through urology. He continues on hormone suppression. DEXA scanning will be ordered next year. We asked him to return to our office in 1 year. He may call if he has any questions or concerns in the interim. Total Time In Follow-Up I spent 20 minutes speaking to the patient in performing examination. I spent 15 minutes reviewing information and completing this note. Copy To Jennifer Biggs PA-C; Raul Mccall D.O.
== END | disposition home or self-care (01) ==
LOC: C.ONC 12:50
PROVIDERS: ATTEND Physician Assistant Medical
DX: Z08 Encounter for follow-up examination after completed treatment for malignant neoplasm (principal); Z92.3 Personal history of irradiation; Z85.46 Personal history of malignant neoplasm of prostate

== ENCOUNTER 2018-09-13 09:48 | Observation (INO) ==
[2018-09-13] MEDS ORDERED: MIDAZOLAM HCL 1 MG/ML 2ML VIAL ONE ×2 (11:28→13:30)
[2018-09-13] MEDS ORDERED: fentaNYL citrate 100 MCG/2 ML VIAL ONE ×2 (11:29→13:51)
[2018-09-13] MEDS ORDERED: NiCARDipine HCL INJ 2.5 MG/ML 10 ML AMP ONE (11:29)
[2018-09-13] MEDS ORDERED: HEPARIN (PORCINE) 1000 UNIT/ML 10 ML (CATH LAB USE ONLY) ONE (11:29)
[2018-09-13] MEDS ORDERED: NITROGLYCERIN/D5W 100MCG/ML 20ML SYR ONE (11:31)
--- NOTE | 2018-09-13 11:31 | Pre Anesthesia Assessment ---
Date of Service September 13, 2018 Pre Sedation Assessment Vital Signs Temp Pulse Resp BP Pulse Ox 09/13/18 10:29 36.4 C L 77 16 101/69 99 Pre-Sedation Airway Assessment Smoking Status: Never smoker Notes The planned sedation has been discussed with the patient. Informed Consent was obtained. I have identified the patient, determined the appropriateness of sedation and have assessed the patient immediately prior to the procedure. All medicine(s) and interventions are by my order.
--- NOTE | 2018-09-13 11:31 | History & Physical Bridge Note ---
Date of Service September 13, 2018 History & Physical Bridge Note I have examined the patient, reviewed the History & Physical and in the interval since the performance of the History & Physical I have noted the following changes of clinical significance: no changes noted
--- NOTE | 2018-09-13 14:18 | Post Anesthesia Assessment ---
Date of Service September 13, 2018 Post Sedation Assessment Vital Signs Temp Pulse Pulse Resp BP Pulse Ox 09/13/18 14:07 75 14 133/69 98 09/13/18 10:29 36.4 C L 77 16 101/69 99 Recovery Score Activity: Moves 4 extremities Respiration: Deep Breath/Cough Circulation: +/-20% PreAnes Value Consciousness: Fully Awake Oxygen Saturation: > 92% On Room Air Post Anesthesia Score: 10 Discharge Sedation Level of Care: Fast Track Phase II Post Sedation Plan On clinical assessment, the patient appears to have tolerated the sedation without complications. Patient is recovering as anticipated. Patient will continue to be monitored by nursing and may be discharged when sedation discharge criteria are met per below protocol. Upon Completions of procedure and additional 15 minutes continue every 5 minute vital signs and the P.A.R. score; then discharge to a Phase I or Fast Track to Phase II per the following guidelines: * Discharge Patient to appropriate Phase II area if PAR is 8 or greater or return to pre- procedure baseline. The post - procedure orders will be as directed. * If PAR score is less than 8 or not return to pre-procedure baseline then patient will follow Phase I monitoring till PAR is reached for Phase II. The Phase I may be done in procedure room or may call to secure a Phase I area. * �If naloxone or flumazenil are used for reversal, hold in Phase I for continued monitoring from when last reversal dose was given for a minimum of 60 minutes or longer pending the nurse and/or physician discretion of patient condition before discharge to Phase II.� Please call the Sedation Physician to re-evaluate and complete post-note for discharge to Phase II area. Do NOT discharge from procedure sedation or Phase 1 until post- sedation evaluation note is complete by procedure /sedation MD Sedation Discharge Instructions to be given to the patient at discharge to home.
[2018-09-13] MEDS ORDERED: NITROGLYCERIN SL 0.4 MG/TAB TAB SL PRN (14:23)
[2018-09-13] MEDS ORDERED: SODIUM CHLORIDE 0.9% 1000ML 1,000 ML IV SCH (14:30)
[2018-09-13] MEDS ORDERED: diazePAM 5 MG TABLET ONE (14:39)
--- NOTE | 2018-09-13 14:42 | Cardiac Catheterization ---
Cardiac Cath Procedure Full Procedure Date September 13, 2018 Pre-Procedure Diagnosis Pre-Procedure Diagnosis: Angina AUC Score AUC Score: 7 Post-Procedure Diagnosis Post-Procedure Diagnosis: Severe CAD, Successful PCI and Normal Intracardiac Pressures Procedure(s) Performed Procedure(s) Performed: Coronary Angiography, Left Heart Cath, Drug Eluting Stent and IVUS Religious Assistant Raul Kerns MD Carpenter Mold(s) Leanne Dennis Estimated Blood Loss Estimated Blood Loss: 10 Medication(s) Medication(s): Fentanyl, Heparin, Lidocaine 1%, Nicardipine, Nitroglycerin and Versed Summary of Findings Indication: Refractory angina Access: 6 [place] right radial artery Catheters: [place], JL 3.5, JR4, EBU 3.5 guide, guideliner Findings: LM -mildly calcified, 20% distal disease LAD -moderately calcified, 30-40% ostial disease, mid to distal vessel small but without significant disease. Moderate caliber first diagonal with proximal subtotal occlusion and LOLLY I distal flow Circumflex -20-30% ostial, 40-50% mid segment disease at takeoff of moderate caliber OM 2, distal circumflex stent widely patent. OM 2 with 30% ostial stenosis RCA -proximal to distal stents widely patent with 20-30% in-stent restenosis in the mid segment at takeoff of acute marginal. Small PDA without significant disease LVEDP -8 -- PCI -- Antithrombotic therapy: Heparin, ticagrelor Procedure: Left main cannulated with EBU 3.5 guide BMW wire placed into distal LAD Whisper wire passed across proximal diagonal lesion into distal vessel Proximal diagonal predilated with 2.0 balloon Later dilated with 2.5 balloon with the aid of a guide liner Unable to pass due to pass a 2.25 stent Recalcitrant proximal diagonal lesion dilated with 2.25 and 2.5 NC balloons Proximal diagonal stented with 2.25 x 15 mm [place] drug-eluting stent Post stenting angiography revealed LOLLY-3 flow in diagonal with well expanded stent and no apparent distal complications. Questionable proximal LAD dissection noted. IVUS used to assess extent of proximal LAD disease, evaluate for dissection. Unable to pass IVUS into distal vessel. Proximal images revealed moderate circumferential calcium with no obvious dissection flap. Decision to stent ostial LAD due to concern for residual dissection. Ostial LAD stented with 2.75 x 8 [place] drug-eluting stent Stent post-dilated with 3.0 noncompliant balloon IC vasodilators administered for spasm Post procedure LOLLY 3 flow, stent well expanded with minimal residual stenosis and no apparent cardiac complications. Arterial Closure: TR band Summary: 1. Subtotal proximal first diagonal occlusion with LOLLY I distal flow 2. Widely patent stents in distal circumflex, proximal to distal RCA 3. Normal intracardiac filling pressure 4. Successful PCI of proximal with first diagonal with single drug-eluting stent (2.25 x 15 mm [place]). 5. Successful PCI of ostial LAD after concern for possible guide-induced dissection (2.75 x 8 mm [place], postdilated with 3.0 NC). 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 Cardiac Status Clinical evaluation leading to the procedure CAD Presenation: Stable angina Anginal Classification: CCS III Heart Failure: No Cardiogenic Shock within 24 Hours: No Cardiac Arrest within 24 Hours: No Imaging Studies Past 6 Months: No Stress Studies Past 6 Months: No Diagnostic Physicians Name: Raul Kerns MD Status: Elective Closure Device Percutaneous Entry Location: Radial Closure Device: Radial Band Recommendations: PCI without planned CABG PCI Indication: Angina despite med therapy Lesion Segment Name: Proximal diagonal Culprit Artery: Yes Stenosis Prior to Rx (%): 99 Chronic Total Occlusion: No IVUS: No FFR: No Pre-Procedure LOLLY Flow: 1 Previously Treated Lesion: No Lesion Complexity: High/C Lesion Length (mm): 12 Thrombus Present: No Bifurcation Lesion: Yes Guidewire Across Lesion: Stenosis Post-Procedure (%): 0 Post-Procedure LOLLY Flow : 3 Devices(s) Deployed: Yes Yes Intraprocedure Events Significant Disection: No Perforation: No
[2018-09-13] MEDS: TICAGRELOR 90 MG TAB PO SCH (20:35)
[2018-09-13] MEDS: METOPROLOL SUCC 25MG EXT REL TAB PO SCH (20:36)
[2018-09-13] MEDS: DICYCLOMINE HCL 20 MG TAB PO SCH (20:36)
[2018-09-13] MEDS ORDERED: ATORVASTATIN 40 MG TAB PO SCH (21:00)
[2018-09-13] MEDS ORDERED: LATANOPROST 0.005% OP SOLN 2.5 ML BTL OP SCH (21:00)
[2018-09-13] MEDS ORDERED: ASPIRIN 81 MG ECTAB PO SCH (21:00)
[2018-09-14 07:27] LABS: Basophils # (auto) 0.03 K/uL (0-0.2); Basophils % (auto) 0.5 %; Eosinophils # (auto) 0.33 K/uL (0-0.5); Eosinophils % (auto) 5.4 %; Hematocrit (blood only) 36.3 % (42-52); Immature Granulocytes # (auto) 0.02 K/uL (0.00-0.02); Immature Granulocytes % (auto) 0.3 %; Lymphocytes # (auto) 1.15 K/uL (1.2-3.4); Lymphocytes % (auto) 18.7 %; Mean Corpuscular Hgb Conc 33.1 g/dL (32-36); Monocytes # (auto) 0.46 K/uL (0.11-0.59); Monocytes % (auto) 7.5 %; Neutrophils # (auto) 4.16 K/uL (1.4-6.5); Neutrophils % (auto) 67.6 %; Platelet Count 151 K/uL (130-400); Red Blood Count 3.82 M/uL (4.7-6.1); White Blood Count 6.15 K/uL (4.8-10.8)
[2018-09-14] MEDS: METOPROLOL SUCC 25MG EXT REL TAB PO SCH (07:53)
[2018-09-14] MEDS: DICYCLOMINE HCL 20 MG TAB PO SCH (07:53)
[2018-09-14] MEDS: TICAGRELOR 90 MG TAB PO SCH (07:54)
--- NOTE | 2018-09-14 08:41 | Discharge Summary ---
Date of Service September 14, 2018 Admission HPI Per Admitting Provider Mr. Engle is a very pleasant 73-year-old man with a history of multivessel coronary artery disease post prior PCI with 3 drug-eluting stents to his RCA and prior PCI with single drug-eluting stent to his distal circumflex in March 2017 who returns for diagnostic cardiac catheterization in the setting of refractory angina despite maximized medical therapy. Specialty Data Cardiology Cardiac catheterization/PCI 09/13/2018: 1. Subtotal proximal first diagonal occlusion with LOLLY I distal flow 2. Widely patent stents in distal circumflex, proximal to distal RCA 3. Normal intracardiac filling pressure 4. Successful PCI of proximal with first diagonal with single drug-eluting stent (2.25 x 15 mm [place]). 5. Successful PCI of ostial LAD after concern for possible guide-induced dissection (2.75 x 8 mm [place], postdilated with 3.0 NC). Discharge Data Consultations 09/13/18 14:22 Consult Cardiac Rehabilitation Routine Procedures Performed Operation Date: 09/13/18 11:00 Actual Procedures p Cath, Left with Cors and Vent - Jamie Kerns MD s Cineradiography w/Routine Exam - Jamie Kerns MD s Drug Eluting Stent SGl Vessel - Jamie Kerns MD s IVUS Coronary Single Vessel - Jamie Kerns MD Hospital Course (1) Multi-vessel coronary artery stenosis: Patient underwent diagnostic cardiac catheterization via right radial artery. He was found to have widely patent RCA and distal circumflex stents. In a moderate caliber high first diagonal patient had a subtotal occlusion with LOLLY I distal flow. Underwent complex PCI with eventual placement of a single drug-eluting stent to his proximal first diagonal. There was some concern for possible guide-induced dissection in the proximal aspect of LAD and a second drug-eluting stent was placed at the LAD ostium. Patient tolerated procedure well. He was admitted for observation to telemetry. He had no recurrent chest pain overnight. No events on telemetry. Follow-up labs unremarkable. No access site complications. Patient discharged home on hospital day 2. Continue dual antiplatelet therapy with aspirin, ticagrelor. Will consider transition to another antiplatelet agent at follow-up in 2 weeks. Isosorbide mononitrate reduced from 120-60 mg daily. Likely taper off at follow-up appointment. Discharge Instructions Home Medications amoxicillin 4 cap PO DIRECTED PRN 06/21/18 [History Confirmed 09/13/18] aspirin 81 mg PO QPM 06/21/18 [History Confirmed 09/13/18] atorvastatin 80 mg PO QPM 06/21/18 [History Confirmed 09/13/18] brinzolamide-brimonidine 1 % OPHTHALMIC (EYE) BID 06/21/18 [History Confirmed ] cholecalciferol (vitamin D3) [Vitamin D3] 2,000 unit PO QAM 06/21/18 [History Confirmed 09/13/18] dicyclomine 40 mg PO BID 06/21/18 [History Confirmed 09/13/18] latanoprost [Xalatan] 1 drp OPHTHALMIC (EYE) HS 06/21/18 [History Confirmed 11/26] leuprolide (6 month) [Lupron Depot (6 Month)] 1 dose IM UD 06/21/18 [History Confirmed 09/13/18] metoprolol succinate 25 mg PO BID 06/21/18 [History Confirmed 09/13/18] multivitamin 1 tab PO QAM 06/21/18 [History Confirmed 09/13/18] nitroglycerin 1 tab SUBLINGUAL DIRECTED PRN 06/21/18 [History Confirmed 09/13] omeprazole 20 mg PO QAM 06/21/18 [History Confirmed 09/13/18] ticagrelor [Brilinta] 90 mg PO BID 06/21/18 [History Confirmed 09/13/18] vitamin E 400 unit PO QAM 06/21/18 [History Confirmed 09/13/18] isosorbide mononitrate 2 tab PO QAM #0 tab 09/14/18 [Rx Confirmed 09/13/18]
[2018-09-14] MEDS ORDERED: MULTIVITAMIN TAB PO SCH (09:00)
[2018-09-14] MEDS ORDERED: PANTOprazole 40 MG TAB PO SCH (09:00)
[2018-09-14] MEDS ORDERED: ISOSORBIDE MONO EXTENDED REL 60 MG TABCR PO SCH (09:00)
== END 2018-09-14 10:06 | disposition home or self-care (01) ==
LOC: 2S 09:48 → CC 09:48

== ENCOUNTER 2022-12-09 10:50 | Inpatient (IN) ==
--- NOTE | 2022-12-02 11:23 | Anesthesiology Consultation ---
Date of Service December 02, 2022 Assessment & Plan (1) Encounter for pre-operative examination: - COVID screening: Per assessment on 12/02: No known COVID-19 positive contacts or current COVID-19 related symptoms. Travel screen negative. Patient vaccinated. At surgeon discretion if preop Covid testing being done. - Cardiology visit (11/19/22): "He is currently stable and asymptomatic from a cardiovascular standpoint with no anginal symptoms occurring at >4 METS of activity. He has no evidence of CHF or significant valvular abnormality. Blood pressure is well controlled. ECG on 11/13/22 showed normal sinus rhythm with no acute ST-T wave abnormality. Given this information, patient is at an acceptable risk to proceed with upcoming surgery without any additional cardiovascular testing or intervention. He can hold Plavix for 5 days prior to surgery and resume once safe from a surgical standpoint. He should take aspirin 81 mg daily while he is off Plavix given his prior intracoronary stenting. He should remain on beta stephen therapy throughout the perioperative period." - PCP visit (11/20/22): "Pt has revised cardiac index score of Two Risk Factors- 2.4% (95% CI: 1.3-3.5) for the surgery scheduled.. Per my evaluation, the patient has been medically optimized for anesthesia." - Abnormal preop CXR: CXR performed 11/13/22 notes "Apparent 2.5 cm density within the lateral right midlung. This may be artifactual or represent minimal airspace opacity. However, a nonemergent chest CT is recommended to exclude a pulmonary lesion." Note written to PCP- Awaiting preop CXR response (Carmen Chino PAC, [facility]). Chart Review Chart Review: Patient NOT seen in Pre Admission Testing History Surgery Operation Date: 12/09/22 12:25 Proposed Procedures p L2-L3 Decompression and Fusion, Spinal Cord Monitoring - Simone Burris, Height/Weight Height: 5 ft 10 in Weight: 99.79 kg Allergies Allergy/AdvReac Type Severity Reaction Status Date / Time Penicillins AdvReac Unknown "IMMUNE TO Verified 12/02/22 10:10 IT, DOESN'T WORK FOR ME" Medications Home Medications Medication Instructions Recorded Confirmed Last Taken cholecalciferol (vitamin D3) 50 2,000 unit PO QAM 06/21/18 12/02/22 Unknown mcg (2,000 unit) capsule (Vitamin D3) multivitamin 1 tab PO QAM 06/21/18 12/02/22 Unknown vitamin E 268 mg (400 unit) capsule 400 unit PO QAM 06/21/18 12/02/22 Unknown amoxicillin 500 mg capsule 2,000 mg PO ONCE PRN pre dental 03/14/19 12/02/22 Unknown acetaminophen 650 mg 1,300 mg PO TID 09/25/20 12/02/22 Unknown tablet,extended release (Tylenol Arthritis Pain) nitroglycerin 0.4 mg sublingual 0.4 mg sublingual DIRECTED PRN 07/03/21 12/02/22 Unknown tablet Chest Pain #30 tabs biotin 5,000 mcg disintegrating 5,000 mcg PO QAM 09/26/21 12/02/22 Unknown tablet leuprolide (6 month) [Lupron Depot 1 ea IM UD 09/26/21 12/02/22 Unknown (6 Month)] atorvastatin 80 mg tablet 80 mg PO QPM #90 tabs 05/28/22 12/02/22 Unknown tolterodine 4 mg capsule,extended 4 mg PO QAM 11/19/22 12/02/22 Unknown release 24 hr clopidogrel 75 mg tablet 75 mg PO QAM 12/02/22 12/02/22 Unknown metoprolol succinate 25 mg 25 mg PO QAM 12/02/22 12/02/22 Unknown tablet,extended release 24 hr Past Medical History Medical History CAD (coronary artery disease) 04/2017 > 4 stents 2018 > 2 stents 11/2021 (cath) > non-obstructive CAD, no stents, medical management recom mended Chronic back pain BL legs radiation Gastric ulcer Hx GERD (gastroesophageal reflux disease) No current meds Hearing deficit + hearing aids High cholesterol History of COVID-19 04/2022- cough > resolved History of irritable bowel syndrome History of prostate cancer had robotic surgery 2015- at [facility] 2017 PSA started elevating again - began Lupron and Radiation-38 rounds (done here [facility]- last 2016). Still currently taking Lupron injections after 3rd recurrence. Hypertension Whitehead syndrome Past Family History Family History Sister Family history of diabetes mellitus Mother Family hx of colon cancer Past Surgical History Surgical History History of esophagogastroduodenoscopy (EGD) History of meniscectomy of left knee History of robot-assisted laparoscopic radical prostatectomy 2015 Hx of bilateral cataract extraction Hx of cardiac cath 04/2017 > 4 stents 2018 > 2 stents 11/2021 > no stents Hx of colonoscopy Hx of shoulder replacement 2001 - partial on right; 2006 total left Social History Smoking Status: Former smoker tobacco type: cigarettes Do You Dip or Chew Tobacco: No Smoking End Date: 60 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0 (0.9-1.1) 11/13/22 Urine Color Yellow 11/13/22 Urine Appearance Clear (Clear) 11/13/22 Urine pH 5.0 (4.5-7.5) 11/13/22 Urine Specific [place] 1.031 (1.000-1.030) H 11/13/22 Urine Protein Negative (Negative) 11/13/22 Urine Glucose (UA) Negative (Negative) 11/13/22 Urine Ketones Negative (Negative) 11/13/22 Urine Blood Negative (Negative) 11/13/22 Urine Nitrite Negative (Negative) 11/13/22 Urine Bilirubin Negative (Negative) 11/13/22 Urine Urobilinogen Negative (Negative) 11/13/22 Urine Leukocyte Esterase Negative (Negative) 11/13/22 Blood Type O Positive 11/13/22 Antibody Screen NEGATIVE 11/13/22 Testing Electrocardiogram Date: 11/13/22 Findings: + NSR @ (74) Chest X-Ray Date: 11/13/22 No acute cardiopulmonary findings. Apparent 2.5 cm density within the lateral right midlung. This may be artifactual or represent minimal airspace opacity. However, a nonemergent chest CT is recommended to exclude a pulmonary lesion. Echocardiogram Date: 12/17/21 LVEF 60 to 65%. No regional motion abnormality. Grade 1 diastolic dysfunction. Normal estimated PASP. No significant valvular disease. Stress Test Date: 12/17/21 Type: exercise 1. Negative exercise stress ECG at 82% MPHR 2. Below average functional capacity for age. Exercise 3:17, achieved 4.9 METS 3. No exercise-induced chest pain. Normal hemodynamic response exercise. 4. Intermediate Grayson treadmill score (3) Cardiac Catheterization Date: 12/02/21 Mild to moderate nonobstructive coronary artery disease-Patent proximal LAD, diagonal stents. 30 to 40% mid LAD just after diagonal. 40% ostial, mid circumflex. Patent distal circumflex stent. Patent proximal to distal RCA stents with 30 to 40% mid in-stent restenosis. Normal intracardiac filling pressure Recommendations: Prior stents are widely patent and coronary artery disease largely unchanged from 2019. Recommend continued medical management of residual small vessel disease (will try ranexa, stop imdur with orthostasis) and further evaluation for other causes of dyspnea.Continue extended DAPT in the setting of multivessel stenting.
[~2022-12-09 10:50] MED LIST changes: +ACETAMINOPHEN 500 MG TAB PO SCH; -AMOX500C3 PO; -ASPI81TA28 PO; -ATOR-26 PO; -BRIN1SUS OPB; +BUPIVACAINE/EPINEPHRINE 0.25% 1:200,000 30 ML VIAL ONE; -CHOL2000 PO; +CeleBREX 200 MG CAP PO SCH; -DICY20TA10 PO; +GABAPENTIN 300 MG CAP PO SCH; -LATA0.009 OPB; -LEUP11.23; +LR 15ML/HR IV SCH; -LUPRON INJ; -METO25TA4 PO; -MULT-506 PO; -NTRGSL/4 UT; -PRLSR20 PO; -TICA1TAB; -TICA1TAB PO; -TRAM-10 PO; -VITACAP37 PO; +ceFAZolin 2000MG 2,000 MG/15 ML SYR IV SCH; +ceFAZolin 330 MG/ML 1 GM VIAL ONE
[2022-12-09] MEDS ORDERED: ePHEDrine sulfate 50 MG/ML AMP IV PRN (12:04)
[2022-12-09] MEDS ORDERED: ATROPINE SULFATE 0.1 MG/ML 10ML SYR IV PRN (12:04)
[2022-12-09] MEDS ORDERED: ONDANSETRON INJ 2 MG/ML 2 ML VIAL IV PRN ×2 (12:04→16:34)
--- NOTE | 2022-12-09 12:38 | History & Physical Bridge Note ---
Date of Service December 09, 2022 History & Physical Bridge Note I have examined the patient, reviewed the History & Physical and in the interval since the performance of the History & Physical I have noted the following changes of clinical significance: no changes noted
--- NOTE | 2022-12-09 12:39 | History & Physical Report ---
Date of Service December 09, 2022 Assessment & Plan (1) Neurogenic claudication due to lumbar spinal stenosis: Plan: L2-L3 decompression and fusion History of Present Illness Chief Complaint: Back and bilateral leg pain Primary Care Provider: Jennifer Biggs PA-C This is a 77-year-old male who presents with chronic persistent back and bilateral leg pain. Failing since course of nonoperative care is here for surgical invention. Allergies Allergy/AdvReac Type Severity Reaction Status Date / Time Penicillins AdvReac Unknown "IMMUNE TO Verified 12/09/22 11:24 IT, DOESN'T WORK FOR ME" Home Medications Medication Instructions Recorded Confirmed Type cholecalciferol (vitamin D3) 50 2,000 unit PO QAM 06/21/18 12/09/22 History mcg (2,000 unit) capsule (Vitamin D3) multivitamin 1 tab PO QAM 06/21/18 12/09/22 History vitamin E 268 mg (400 unit) capsule 400 unit PO QAM 06/21/18 12/09/22 History amoxicillin 500 mg capsule 2,000 mg PO ONCE PRN pre dental 03/14/19 12/09/22 History acetaminophen 650 mg 1,300 mg PO TID 09/25/20 12/09/22 History tablet,extended release (Tylenol Arthritis Pain) nitroglycerin 0.4 mg sublingual 0.4 mg sublingual DIRECTED PRN 07/03/21 12/09/22 Rx tablet Chest Pain #30 tabs biotin 5,000 mcg disintegrating 5,000 mcg PO QAM 09/26/21 12/09/22 History tablet leuprolide (6 month) [Lupron Depot 1 ea IM UD 09/26/21 12/09/22 History (6 Month)] tolterodine 4 mg capsule,extended 4 mg PO QAM 11/19/22 12/09/22 History release 24 hr (Detrol LA) clopidogrel 75 mg tablet 75 mg PO QAM 12/02/22 12/09/22 History metoprolol succinate 25 mg 25 mg PO QAM 12/02/22 12/09/22 History tablet,extended release 24 hr aspirin 81 mg tablet 81 mg PO DAILY 12/09/22 12/09/22 History atorvastatin 80 mg tablet (Lipitor) 80 mg PO QPM 12/09/22 12/09/22 History Past Med/Surg History Medical History CAD (coronary artery disease) 04/2017 > 4 stents 2018 > 2 stents 11/2021 (cath) > non-obstructive CAD, no stents, medical management recommended Chronic back pain BL legs radiation Gastric ulcer Hx GERD (gastroesophageal reflux disease) No current meds Hearing deficit + hearing aids High cholesterol History of COVID-19 04/2022- cough > resolved History of irritable bowel syndrome History of prostate cancer had robotic surgery 2015- at [facility] 2016 PSA started elevating again - began Lupron and Radiation-38 rounds (done here [facility]- last 2016). Still currently taking Lupron injections after 3rd recurrence. 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 SERVICE; Second Hand Exposure: No; Do You Dip or Chew Tobacco: No; Tobacco Cessation Education Requested by Patient: No Hx Alcohol Use: No Hx Substance Use: No Preferred Language: Albanian Communication Ability: Effective Electric Arc Welder Required: No Beliefs That Will Affect Care: None Current Living Situation: Spouse Other Information That Helps Us Care for You: No Feels Safe at Home: Yes Safety Concerns: Feels Safe At This Time Assistive Devices: Glasses and Hearing Aid - Bilateral Physical Exam Physical Exam: Patient is alert and oriented Heart regular rhythm Lungs clear Results & Data Results & Data Vital Signs (Past 12 Hours) Vital Signs Temp Pulse Resp BP Pulse Ox O2 Del Method 12/09/22 11:29 36.5 C 73 20 108/78 97 Room Air
[2022-12-09] MEDS ORDERED: MIDAZOLAM HCL 1 MG/ML 2ML VIAL ONE (13:01)
[2022-12-09] MEDS ORDERED: fentaNYL citrate PF 100 MCG/2 ML VIAL ONE ×2 (13:01→14:32)
[2022-12-09] MEDS ORDERED: DEXAMETHASONE SOD INJ 4 MG/ML VIAL ONE (13:01)
[2022-12-09] MEDS ORDERED: ROCURONIUM BROMIDE 10 MG/ML 5 ML VIAL IV ONE ×3 (13:01→13:41)
[2022-12-09] MEDS ORDERED: PROPOFOL IV EMULSION 10 MG/ML 20 ML VIAL IV ONE (13:01)
[2022-12-09] MEDS ORDERED: ONDANSETRON INJ 2 MG/ML 2 ML VIAL ONE (13:01)
[2022-12-09] MEDS ORDERED: GLYCOPYRROLATE 0.2 MG/ML VIAL ONE (13:01)
[2022-12-09] MEDS ORDERED: LIDOCAINE 2% MPF LOCAL 5 ML VIAL ONE (13:01)
[2022-12-09] MEDS ORDERED: NEOSTIGMINE METHYLSULFATE 1 MG/ML 10ML VIAL ONE (13:01)
[2022-12-09] MEDS ORDERED: FLOSEAL HEMOSTATIC MATRIX 10ML TOP ONE (13:50)
--- NOTE | 2022-12-09 14:39 | Operative Report ---
Post Operative Report Pre & Post Diagnosis Operation Date: 12/09/22 12:25 Pre-Op Diagnosis: Neurogenic claudication due to lumbar spinal stenosis Post-Op Diagnosis: Neurogenic claudication due to lumbar spinal stenosis I identified the patient and participated in the time-out.: Yes Procedure Operation Date: 12/09/22 12:25 Actual Procedures #1 lumbar decompression bilateral medial facetectomies and foraminotomies L1-L2 L2-L3. #2 posterior spinal fusion L2-L3. #3 placed posterior instrumentation L2-L3. #4 interbody fusion L2-L3. #5 placement of Spira 12 x 26 mm cage at L2- L3 per #6 placement locally harvested morselized autograft in the posterior gutters. #7 placement of I factor V toss in interbody space and posterior lateral gutters. Surgeon Simone Burris, DO Manager Event Dorcas Rodriguez Estimated Blood Loss 150 Findings See Below Patient is 5 foot 10 weighing over 103 kg with a BMI in excess of 32. The patient's body habitus did contribute to significant technical difficulty required deepest retractors and longer instruments in order to perform his procedure. Specimens None Indications This is a 77-year-old male who presents above-mentioned diagnosis and failing course of nonoperative care is here for surgical invention. Description of Procedure Patient was met with identified informed consent obtained. Patient was then taken to the operative suite underwent patient placed in a prone position on the [place] table top Alexander frame. All bony promises well-padded eyes inspected to ensure no external pressure placed upon them. This point the lumbar spine was prepped and draped in normal sterile fashion. Sharp dissection with the a ssistance of bradycardia from down to and exposing the lamina and transverse processes of L2-L3. From caudal cephalad fashion complete laminectomy of L to partial laminectomy of L1 was performed including bilateral medial facetectomies and foraminotomies addressing severe spinal stenosis. Pedicle screws were then placed in L2-L3 bilaterally with assistance of fluoroscopy and the properly sized kim placed. Bilateral trans foraminal approach on the left complete discectomy of L2-L3 was performed endplates curetted to subcortical bleeding bone and a 12 x 26 mm Spira cage with I factor tapped in position. The rods then locked in final position bilaterally. The transverse processes of L2-L3 burred to subcortically bone. I factor bone of the test and locally harvested morselized autograft was placed in the posterior gutters. 15 ventricular inserted. The incision was then closed with 1 Vicryl the fascia 2-0 Vicryl subcutaneously and 4 Monocryl for final skin closure. Steri-Strips and a sterile dressing placed. Patient awakened taken to PACU in stable condition. Please note spinal cord monitoring was utilized at the procedure no changes noted. Lastly Dorcas Rodriguez was present at the entire surgery involved the patient positioning complex portions of the surgery and final skin closure. I attest to the content of the Intraoperative Record and any orders documented therein. Any exceptions are noted below.
--- NOTE | 2022-12-09 14:48 | Fluoroscopy Report ---
FL lumbar spine 2-3V CLINICAL HISTORY: L2-3 DFIstatus post lumbar spinal fusion COMPARISON STUDY: MR lumbar spine 10/30/2022 FLUOROSCOPY TIME: 18.3 seconds FLUOROSCOPY IMAGES: 2 EXPOSURE DOSE: 17.36 mGy Air Kerma FINDINGS: Posterior interbody kim and screw fusion with discectomy at what is labeled the L2-L3 level . Exact numbering cannot be confirmed secondary to magnification of the images. The hardware appears intact. No expected opaque foreign bodies. Note that the images were submitted following completion o f the surgery. IMPRESSION: Fluoroscopic assistance as above. ACT 112: Negative or not required by law. Electronically signed by: Song León M.D. 12/09/2022 2:47 PM
[2022-12-09] MEDS ORDERED: ceFAZolin 330 MG/ML 1 GM VIAL IR ONE (14:51)
[2022-12-09] MEDS: fentaNYL citrate PF 100 MCG/2 ML VIAL IV PRN ×3 (15:19→15:30)
--- NOTE | 2022-12-09 15:37 | Anesthesiology Progress Note ---
Date of Service December 09, 2022 Anesthesia Post Procedure Vital Signs Vital Signs: Temp Pulse Pulse Resp BP Pulse Ox O2 Del Method 12/09/22 15:25 61 10 L 128/66 96 Room Air 12/09/22 15:15 65 12 136/76 98 Room Air 12/09/22 15:05 66 14 134/79 98 Room Air 12/09/22 14:56 36.1 C L 65 10 L 142/81 H 99 Oxymask 12/09/22 11:29 36.5 C 73 20 108/78 97 Room Air O2 Flow Rate 12/09/22 15:25 12/09/22 15:15 12/09/22 15:05 12/09/22 14:56 6 12/09/22 11:29 Pain Intensity Back: Pain Intensity: 5 Transfer of Care Handoff Completed per policy Notes Mental Status: alert / awake / arousable Patient Amnestic to Procedure: Yes Nausea / Vomiting: adequately controlled Pain: adequately controlled Airway Patency, RR, SpO2: stable & adequate BP & HR: stable & adequate Hydration State: stable & adequate Anesthetic Complications: no major complications apparent and Pt Satisfied with anesthetic care
[2022-12-09] MEDS ORDERED: PROMETHAZINE HCL 12.5 MG in SODIUM CHLORIDE 0.9% 50 ML IV PRN (16:34)
[2022-12-09] MEDS ORDERED: ONDANSETRON 4 MG OD TAB PO PRN (16:34)
[2022-12-09] MEDS ORDERED: DO NOT ADMINISTER FLU VACCINE PRN (16:34)
[2022-12-09] MEDS ORDERED: FAMOTIDINE 20 MG TAB PO PRN (16:34)
[2022-12-09] MEDS ORDERED: diphenhydrAMINE Capsule 25 MG CAP PO PRN (16:34)
[2022-12-09] MEDS ORDERED: NALOXONE HCL 0.4 MG/1 ML VIAL/CARP IV PRN (16:34)
[2022-12-09] MEDS ORDERED: ACETAMINOPHEN 1,000 MG/100 ML VIAL IV PRN (16:34)
[2022-12-09] MEDS ORDERED: MAGNESIUM HYDROXIDE SUSP 30 ML UDC PO PRN (16:34)
[2022-12-09] MEDS ORDERED: NITROGLYCERIN SL 0.4 MG/TAB TAB SL PRN (16:34)
[2022-12-09] MEDS ORDERED: ALUMINUM/MAGNESIUM SUSP 30 ML UDC PO PRN (16:34)
[2022-12-09] MEDS ORDERED: LORazepam 0.5 MG TAB PO PRN (16:34)
[2022-12-09] MEDS ORDERED: bisacodyL 10 MG SUPP PR PRN (16:34)
[2022-12-09] MEDS ORDERED: HYDROmorphone INJ 1 MG/ML SYRINGE IV PRN (16:34)
[2022-12-09] MEDS ORDERED: DO NOT ADMINISTER PNEUMOCOCCAL VACCINE PRN (16:34)
[2022-12-09] MEDS ORDERED: hydrOXYzine HCl 25 MG TAB PO PRN (16:34)
[2022-12-09] MEDS ORDERED: LORazepam 2 MG/1 ML VIAL IV PRN (16:34)
[2022-12-09] MEDS ORDERED: traMADol HCL 50 MG TABLET PO PRN (16:34)
[2022-12-09] MEDS ORDERED: METOCLOPRAMIDE HCL INJ 5 MG/ML 2 ML VIAL IV PRN (16:34)
[2022-12-09] MEDS ORDERED: oxyCODONE HCL IR 5 MG TAB (IMMEDIATE RELEASE) PO PRN (16:34)
[2022-12-09] MEDS ORDERED: HYDROmorphone INJ 0.5 MG/0.5 ML SYR IV PRN (16:34)
[2022-12-09] MEDS ORDERED: SOD PHOSPHATE/SOD BIPHOSPHATE ENEMA 132 ML BTL PR PRN (16:34)
[2022-12-09] MEDS: LACTATED RINGER'S 1,000 ML IV SCH (17:16)
--- NOTE | 2022-12-09 18:37 | Hospitalist Consultation ---
Date of Consultation December 09, 2022 Assessment & Plan (1) Neurogenic claudication due to lumbar spinal stenosis: POD#0 L2-L3 decompression and fusion by Dr. Burris Activity and wound care orders as per ortho Pain control with bowel regimen PT/OT Monitor H/H for acute blood loss anemia and transfuse blood products PRN EBL 150 cc (2) CAD (coronary artery disease): History of multivessel CAD s/p multiple PCI. Follows with [facility] [place] cardiology. Per outpatient cardiology note: Cardiac cath 11/2021: Patent proximal LAD, diagonal stents, 35% mid LAD, 40% ostial/mid circumflex, patent distal LCx stent. Patent proximal to distal RCA stents with 35% mid ISR Cardiac cath/PCI 09/13/2018: Patent circumflex, RCA stents. PCI to first diagonal with 2.25 x 15 mm [place], PCI to ostial LAD due to possible guide dissection 2.75 x 8 [place] postdilated with 3.0 NC PCI 04/03/2017: Proximal to distal RCA 3.0 x 22, 2.75 x 30, 2.5 x 30 [place] PCI 04/09/2017: 2.25 x 22 m [place] to OM2 Continue ASA, statin, beta-stephen. Resume Plavix at the discretion of spine Ortho. (3) Prostate cancer: S/p prostatectomy, radiation. Currently on Lupron injections. DVT PROPHYLAXIS Teds/SCDs as per spine Ortho Patient seen in collaboration with Dr. Ma. I spent a total of 45 minutes coordinating, documenting, and providing care for this patient excluding time spent in the performance of separately billed services. This included personally reviewing all current laboratories and imaging studies, medication reconciliation, outpatient chart review, and discussion with specialists. Supervising Physician Co-Signing Physician Notes Pt is a 77 y/o M with hx of CAD s/p stentx6, Prostate Ca s/p surgery, HLD, DDD, Prediabetes admitted for L1-L3 decompression and consulted for medical comanagement. PE: NAD, well developed Cardiac: normal S1/S2, no murmur Lungs: CTA, no wheezing or crackles Abd: ND, NT, soft MSK: able to move both ankles, and toes Psych: AAOx3, normal affect A/p: S/P L1-L3 decompression with L2-3 fusion: -POD # 0 - pt is doing well -vSS -pain management per ortho team - PT/OT -monitor BMP and CBC CAD s/p stent: -continue Metoprolol, Lipitor and aspirin ---- can restart Plavix once safe to resume per the surgery team Agree with A/P by KRISTINE Olivera History of Present Illness Reason for Consultation: Postop medical management Requesting Physician: Dr. Burris Attending Physician: Simone Burris DO History of Present Illness 77-year-old male with PMH multivessel CAD, prostate cancer s/p prostatectomy, radiation, currently on Lupron injections, and other problems listed below who is s/p L2-L3 decompression and fusion today by Dr. Burris. History obtained from patient at the bedside and review of outpatient PCP and cardiology notes. Postoperatively, the patient is doing well. He reports his pain is well controlled. No numbness, tingling, weakness to lower extremities. He denies chest pain or shortness of breath. No abdominal pain or nausea. Denies lightheadedness and dizziness. Patient has not voided since surgery. Allergies Allergy/AdvReac Type Severity Reaction Status Date / Time Penicillins AdvReac Unknown "IMMUNE TO Verified 12/09/22 11:24 IT, DOESN'T WORK FOR ME" Home Medications Medication Instructions Recorded Confirmed Type cholecalciferol (vitamin D3) 50 2,000 unit PO QAM 06/21/18 12/09/22 History mcg (2,000 unit) capsule (Vitamin D3) multivitamin 1 tab PO QAM 06/21/18 12/09/22 History vitamin E 268 mg (400 unit) capsule 400 unit PO QAM 06/21/18 12/09/22 History amoxicillin 500 mg capsule 2,000 mg PO ONCE PRN pre dental 03/14/19 12/09/22 History acetaminophen 650 mg 1,300 mg PO TID 09/25/20 12/09/22 History tablet,extended release (Tylenol Arthritis Pain) nitroglycerin 0.4 mg sublingual 0.4 mg sublingual DIRECTED PRN 07/03/21 12/09/22 Rx tablet Chest Pain #30 tabs biotin 5,000 mcg disintegrating 5,000 mcg PO QAM 09/26/21 12/09/22 History tablet leuprolide (6 month) [Lupron Depot 1 ea IM UD 09/26/21 12/09/22 History (6 Month)] tolterodine 4 mg capsule,extended 4 mg PO QAM 11/19/22 12/09/22 History release 24 hr (Detrol LA) clopidogrel 75 mg tablet 75 mg PO QAM 12/02/22 12/09/22 History metoprolol succinate 25 mg 25 mg PO QAM 12/02/22 12/09/22 History tablet,extended release 24 hr aspirin 81 mg tablet 81 mg PO DAILY 12/09/22 12/09/22 History atorvastatin 80 mg tablet (Lipitor) 80 mg PO QPM 12/09/22 12/09/22 History Patient History Medical History CAD (coronary artery disease) 04/2017 > 4 stents 2019 > 2 stents 11/2021 (cath) > non-obstructive CAD, no stents, medical management recommended Chronic back pain BL legs radiation Gastric ulcer Hx GERD (gastroesophageal reflux disease) No current meds Hearing deficit + hearing aids High cholesterol History of COVID-19 04/2022- cough > resolved History of irritable bowel syndrome History of prostate cancer had robotic surgery 2016- at [facility] 2016 PSA started elevating again - began Lupron and Radiation-38 rounds (done here [facility]- last 2016). Still currently taking Lupron injections after 3rd recurrence. 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; Second Hand Exposure: No; Do You Dip or Chew Tobacco: No; Tobacco Cessation Education Requested by Patient: No Hx Alcohol Use: No Hx Substance Use: No Preferred Language: Malay Communication Ability: 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 Beliefs That Will Affect Care: None Current Living Situation: Spouse Other Information That Helps Us Care for You: No Feels Safe at Home: Yes Safety Concerns: Feels Safe At This Time Assistive Devices: Glasses and Hearing Aid - Bilateral Review of Systems Review of Systems: ROS per HPI, all other systems reviewed and negative Physical Exam Constitutional: WD/WN, vitals as above Eyes: PERRL, conjunctivae normal, anicteric sclerae ENMT: external ear and nose normal, oropharynx normal Respiratory: normal respiratory effort, lungs clear to auscultation Cardiovascular: Rate/Rhythm: regular rate and regular rhythm Vessels: normal peripheral pulses Extremities: no edema Gastrointestinal (Abdomen): normal bowel sounds, soft, nontender, no hepatosplenomegaly Musculoskeletal: S/p back surgery, pedal pushes and pulls strong bilaterally, drain in place draining bloody drainage Skin: no rashes, warm and dry Neurologic: PERRL, EOMI, accommodation nl, no face palsy, no dysarthria Psychiatric: A+Ox3, euthymic affect Results & Data Results & Data Vital Signs (Past 12 Hours) Vital Signs Temp Pulse Pulse Resp BP Pulse Ox O2 Del Method 12/09/22 17:30 36.6 C 84 18 142/82 H 96 Room Air 12/09/22 17:00 36.3 C L 74 18 143/84 H 96 Room Air 12/09/22 16:41 Room Air 12/09/22 16:30 36.4 C L 65 18 137/74 96 Room Air 12/09/22 16:15 60 12 129/80 96 Room Air 12/09/22 16:00 73 14 129/80 97 Room Air 12/09/22 15:45 61 12 135/72 96 Room Air 12/09/22 15:35 36.4 C L 62 12 124/78 95 Room Air 12/09/22 15:25 61 10 L 128/66 96 Room Air 12/09/22 15:15 65 12 136/76 98 Room Air 12/09/22 15:05 66 14 134/79 98 Room Air 12/09/22 14:56 36.1 C L 65 10 L 142/81 H 99 Oxymask 12/09/22 11:29 36.5 C 73 20 108/78 97 Room Air O2 Flow Rate 12/09/22 17:30 12/09/22 17:00 05/02/23 16:41 12/09/22 16:30 12/09/22 16:15 12/09/22 16:00 12/09/22 15:45 12/09/22 15:35 12/09/22 15:25 12/09/22 15:15 12/09/22 15:05 12/09/22 14:56 6 12/09/22 11:29
[2022-12-09] MEDS: ceFAZolin 2000MG 2,000 MG/15 ML SYR IV SCH (19:45)
[2022-12-09] MEDS: DOCUSATE SODIUM/SENNA 50/8.6MG TAB PO SCH (20:16)
[2022-12-09] MEDS: ATORVASTATIN 40 MG TAB PO SCH (20:16)
[2022-12-10] MEDS: LACTATED RINGER'S 1,000 ML IV SCH (00:04)
[2022-12-10] MEDS: POLYETHYLENE (MIRALAX) 17 GM PACK PO SCH ×4 (05:31→23:08)
[2022-12-10] MEDS: ceFAZolin 2000MG 2,000 MG/15 ML SYR IV SCH (05:31)
[2022-12-10 07:17] LABS: Basophils # (auto) 0.01 K/uL (0-0.2); Basophils % (auto) 0.1 %; Hematocrit (blood only) 33.9 % (42.0-52.0); Hemoglobin 11.5 g/dl (14.0-18.0); Immature Granulocytes # (auto) 0.07 K/uL (0.01-0.20); Immature Granulocytes % (auto) 0.6 %; Lymphocytes # (auto) 0.79 K/uL (1.2-3.4); Lymphocytes % (auto) 7.3 %; Mean Corpuscular Hemoglobin 31.4 pg (25.0-34.0); Mean Corpuscular Hgb Conc 33.9 g/dL (32.0-36.0); Mean Corpuscular Volume 92.6 fL (80.0-100.0); Mean Platelet Volume 8.9 fL (9.4-12.4); Monocytes # (auto) 0.52 K/uL (0.11-0.59); Monocytes % (auto) 4.8 %; Neutrophils # (auto) 9.39 K/uL (1.40-6.50); Neutrophils % (auto) 87.2 %; Platelet Count 151 K/uL (130-400); RDW Standard Deviation 48.1 fL (36.4-46.3); Red Blood Count 3.66 M/uL (4.70-6.10); White Blood Count 10.78 K/ul (4.8-10.8)
[2022-12-10 07:47] LABS: BUN Creatinine Ratio 20.7 (10-20); Calcium 8.7 mg/dl (8.6-10.3); Creatinine Clr Calc Pharmacy 82.4 ml/min; Est GFR (African American) 93.3 ml/min; Est GFR (Non-African American) 80.5 ml/min; Potassium 4.5 mmol/L (3.5-5.1)
[2022-12-10] MEDS ORDERED: NON-FORMULARY MEDICATION (Biotin 5,000 mcg tablet,disintegrating) PO SCH (09:00)
[2022-12-10] MEDS ORDERED: METOPROLOL SUCC 25MG EXT REL TAB PO SCH (09:00)
[2022-12-10] MEDS: ASPIRIN 81 MG ECTAB PO SCH (09:05)
[2022-12-10] MEDS: TOCOPHERYL, DL-ALPHA 400 UNITS 180 MG CAP PO SCH (09:06)
[2022-12-10] MEDS: MULTIVITAMIN TAB PO SCH (09:06)
[2022-12-10] MEDS: TOLTERODINE TARTRATE LA 4 MG CAPCR PO SCH (09:07)
[2022-12-10] MEDS: dexAMETHasone 6 MG in SYRINGE 0 ML IV SCH (09:08)
[2022-12-10] MEDS: CHOLECALCIFEROL 1,000 UNITS 25 MCG TAB PO SCH (09:39)
--- NOTE | 2022-12-10 10:56 | Orthopedic Progress Note ---
Date of Service December 10, 2022 Assessment & Plan (1) Neurogenic claudication due to lumbar spinal stenosis: Plan: At this time we will continue physical therapy monitor his JOSE DANIEL operatively discharge home in the next few days. Admission and Anticipated Discharge Date Admission Date: December 09, 2022 Subjective Patient's back pain is controlled leg pain improved Physical Exam Physical Exam: Patient is currently in bed. Is comfortable. Is for strength testing. Results & Data Vital Signs (Past 12 Hours) Vital Signs Temp Pulse Resp BP BP Pulse Ox O2 Del Method 12/10/22 08:57 Room Air 12/10/22 08:03 36.7 C 77 14 94/56 L 95 Room Air 12/10/22 04:19 36.7 C 80 18 106/65 94 Room Air 12/09/22 23:04 36.7 C 81 16 113/74 94 Room Air
--- NOTE | 2022-12-10 12:05 | Hospitalist Progress Note ---
Date of Service December 10, 2022 Assessment & Plan (1) Neurogenic claudication due to lumbar spinal stenosis: Plan: POD#1 L2-L3 decompression and fusion by Dr. Burris Activity and wound care orders as per ortho Pain control with bowel regimen PT/OT Acute blood loss anemia, post surgical, expected, likely dilutional component as well EBL 150ml pre op 14.3, now 11.5 continue to monitor h/h (2) CAD (coronary artery disease): Plan: History of multivessel CAD s/p multiple PCI. Follows with [facility] [place] cardiology. Per outpatient cardiology note: Cardiac cath 11/2021: Patent proximal LAD, diagonal stents, 35% mid LAD, 40% ostial/mid circumflex, patent distal LCx stent. Patent proximal to distal RCA stents with 35% mid ISR Cardiac cath/PCI 09/13/2018: Patent circumflex, RCA stents. PCI to first diagonal with 2.25 x 15 mm [place], PCI to ostial LAD due to possible guide dissection 2.75 x 8 [place] postdilated with 3.0 NC PCI 04/03/2017: Proximal to distal RCA 3.0 x 22, 2.75 x 30, 2.5 x 30 [place] PCI 04/09/2017: 2.25 x 22 m [place] to OM2 Continue ASA, statin. Resume Plavix at the discretion of spine Ortho. Hold metoprolol for now given lower blood pressure, 94/56, pt asymptomatic (3) Prostate cancer: Plan: S/p prostatectomy, radiation. Currently on Lupron injections. DVT PROPHYLAXIS Teds/SCDs as per spine Ortho Patient seen in collaboration with Dr. Ma. I spent a total of 35 minutes coordinating, documenting, and providing care for this patient excluding time spent in the performance of separately billed services. This included personally reviewing all current laboratories and imaging studies, medication reconciliation, outpatient chart review, and discussion with specialists. Plan delayed entry date of service noted above Attending Addendum: care coordinated with JERZY López please refer to her notes for full details, I agree with her notes patient seen and examined, records reviewed by myself as well diagnoses and plan of care as per JERZY Jorge MD Admission and Anticipated Discharge Date Admission Date: December 09, 2022 Subjective Pt seen and examined in room 385-2. F/U lumbar surgery. Denies f/c/s, dizziness, chest pain, sob, n/v/d, abd pain. appetite is okay. C/o incision tenderness. He had episode of incontinence last night. hx of robotic prostatectomy so chronic urinary issues, but never to that extreme, was upsetting to him. Has urinal now just in case. Review of Systems Review of Systems: All systems reviewed & are unremarkable except as noted in HPI & below Physical Exam Physical Exam: Gen: WD/WN, M, NAD, A&O x3 HEENT: Normocephalic, atraumatic, conjunctivae moist, sclerae anicteric, mucous membranes moist. Lung: Clear to Auscultation bilaterally, no wheezes/rales/rhonchi Heart: Regular rate, regular rhythm, no murmurs, rubs, or gallops Abdomen: Soft, NT, ND +BS x 4 Extremities: No edema, lumbar dressing cdi, albert drain with serosang output Skin: Warm, no rash, negative turgor. Results & Data Results & Data Vital Signs (Past 12 Hours) Vital Signs Temp Pulse Resp BP BP Pulse Ox O2 Del Method 12/10/22 08:57 Room Air 12/10/22 08:03 36.7 C 77 14 94/56 L 95 Room Air 12/10/22 04:19 36.7 C 80 18 106/65 94 Room Air Laboratory Results Short CBC 12/10/22 Range/Units 06:56 WBC 10.78 (4.8-10.8) K/ul Hgb 11.5 L (14.0-18.0) g/dl Hct 33.9 L (42.0-52.0) % Plt Count 151 (130-400) K/uL BMP 12/10/22 06:56 Sodium 138 Potassium 4.5 Chloride 106 Carbon Dioxide 25 BUN 19 Creatinine 0.92 Glucose 140 H Calcium 8.7 Medications Administered Current Inpatient Medications Acetaminophen (Acetaminophen 500 Mg Tab) 1,000 mg PO Q8H PRN PRN Reason: MILD Pain Scale 1,2,3 & Pre PT Stop: 01/08/23 16:33 Al Hydrox/Mg Hydrox/Simethicone (Aluminum/Magnesium Susp 30 Ml Udc) 30 ml PO Q6H PRN PRN Reason: Dyspepsia Stop: 01/08/23 16:33 Aspirin (Aspirin 81 Mg Ectab) 81 mg PO DAILY [facility] Stop: 01/09/23 08:59 Last Admin: 12/10/22 09:05 Dose: 81 mg Atorvastatin Calcium (Atorvastatin 40 Mg Tab) 80 mg PO QPM EDELMIRA Stop: 01/08/23 20:59 Last Admin: 12/09/22 20:16 Dose: 80 mg Bisacodyl (Bisacodyl 10 Mg Supp) 10 mg AR DAILY PRN PRN Reason: Constipation Stop: 01/08/23 16:33 Diphenhydramine HCl (Diphenhydramine Capsule 25 Mg Cap) 25 mg PO Q6H PRN PRN Reason: Allergic Rhinitis/Insomnia Stop: 01/08/23 16:33 Famotidine (Famotidine 20 Mg Tab) 20 mg PO Q12H PRN PRN Reason: Dyspepsia Stop: 01/08/23 16:33 Hydromorphone HCl (Hydromorphone Inj 0.5 Mg/0.5 Ml Syr) 0.5 mg IV Q3H PRN PRN Reason: MODERATE Pain (Scale 4,5,6) & Pre PT Stop: 12/23/22 16:33 Hydromorphone HCl (Hydromorphone Inj 1 Mg/Ml Syringe) 1 mg IV Q3H PRN PRN Reason: SEVERE Pain (Scale 7,8,9,10) Stop: 12/23/22 16:33 Hydroxyzine HCl (Hydroxyzine Hcl 25 Mg Tab) 25 mg PO Q8H PRN PRN Reason: Anxiety Stop: 01/08/23 16:33 Promethazine HCl 12.5 mg/ (Sodium Chloride) 50.5 mls @ 202 mls/hr IV Q6H PRN PRN Reason: Nausea &/or Vomiting Stop: 01/08/23 16:33 Acetaminophen (Ofirmev) 1,000 mg in 100 mls @ 400 mls/hr IV Q8H PRN PRN Reason: Pain Rating 1-3 & Pre PT Stop: 12/10/22 16:34 Dexamethasone 6 mg/ Syringe 1.5 mls @ 1 mls/min IV DAILY [facility] Stop: 12/12/22 09:02 Last Admin: 12/10/22 09:08 Dose: 1 mls/min Influenza Virus Vaccine Quadrival (Do Not Administer Flu Vaccine) 1 each N/A PRN PRN PRN Reason: Notification Stop: 01/08/23 16:33 Lorazepam (Lorazepam 0.5 Mg Tab) 0.5 mg PO Q8H PRN PRN Reason: Sedation/Anxiety Stop: 01/08/23 16:33 Lorazepam (Lorazepam 2 Mg/1 Ml Vial) 0.5 mg IV Q8H PRN PRN Reason: Sedation/Anxiety Stop: 01/08/23 16:33 Magnesium Hydroxide (Magnesium Hydroxide Susp 30 Ml Udc) 30 ml PO Q24H PRN PRN Reason: Constipation Stop: 01/08/23 16:33 Metoclopramide HCl (Metoclopramide Hcl Inj 5 Mg/Ml 2 Ml Vial) 10 mg IV Q6H PRN PRN Reason: Nausea &/or Vomiting Stop: 01/08/23 16:33 Multivitamins (Multivitamin Tab) 1 tab PO QAM EDELMIRA Stop: 01/09/23 08:59 Last Admin: 12/10/22 09:06 Dose: 1 tab Naloxone HCl (Naloxone Hcl 0.4 Mg/1 Ml Vial/Carp) 0.1 mg IV Q5M PRN PRN Reason: Oversedation/Resp depression Stop: 01/08/23 16:33 Nitroglycerin (Nitroglycerin Sl 0.4 Mg/Tab Tab) 0.4 mg SL Q5M PRN PRN Reason: Chest Pain Stop: 01/08/23 16:33 Ondansetron HCl (Ondansetron Inj 2 Mg/Ml 2 Ml Vial) 4 mg IV Q6H PRN PRN Reason: Nausea &/or Vomiting Stop: 01/08/23 16:33 Ondansetron HCl (Ondansetron 4 Mg Od Tab) 4 mg PO Q6H PRN PRN Reason: Nausea Stop: 01/08/23 16:33 Oxycodone HCl (Oxycodone Hcl Ir 5 Mg Tab (Immediate Release)) 5 - 10 mg PO Q4H PRN PRN Reason: Pain & Pre PT Stop: 12/23/22 16:33 Last Admin: 12/09/22 17:16 Dose: 10 mg Pneumococcal Polyvalent Vaccine (Do Not Administer Pneumococcal Vaccine) 1 each N/A PRN PRN PRN Reason: Notification Stop: 01/08/23 16:33 Polyethylene Glycol (Polyethylene (Miralax) 17 Gm Pack) 17 gm PO Q6 [facility] Stop: 01/09/23 05:59 Last Admin: 12/10/22 05:31 Dose: 17 gm Senna/Docusate Sodium (Docusate Sodium/Senna 50/8.6mg Tab) 2 tab PO HS [facility] Stop: 01/08/23 20:59 Last Admin: 12/09/22 20:16 Dose: 2 tab Sodium Biphosphate/Sodium Phosphate (Sod Phosphate/Sod Biphosphate Enema 132 Ml Btl) 132 ml AR ONE PRN PRN Reason: Constipation Stop: 01/08/23 16:33 Tolterodine Tartrate (Tolterodine Tartrate La 4 Mg Capcr) [facility] Stop: 01/09/23 08:59 Last Admin: 12/10/22 09:07 Dose: 4 mg Tramadol HCl (Tramadol Hcl 50 Mg Tablet) 50 - 100 mg PO Q4H PRN PRN Reason: Moderate-Severe pain & Pre PT Stop: 01/08/23 16:33 Last Admin: 12/09/22 19:49 Dose: 100 mg Vitamin D (Cholecalciferol 1,000 Units 25 Mcg Tab) 2,[facility] Stop: 01/09/23 08:59 Last Admin: 12/10/22 09:39 Dose: 2,000 units Vitamin E (Tocopheryl, Dl-Alpha 400 Units 180 Mg Cap) 400 units PO QAM [facility] Stop: 01/09/23 08:59 Last Admin: 12/10/22 09:06 Dose: 400 units
[2022-12-10] MEDS: ACETAMINOPHEN 500 MG TAB PO PRN ×2 (13:49→23:05)
[2022-12-10] MEDS: ATORVASTATIN 40 MG TAB PO SCH (20:27)
[2022-12-10] MEDS: DOCUSATE SODIUM/SENNA 50/8.6MG TAB PO SCH (20:27)
[2022-12-11] MEDS: POLYETHYLENE (MIRALAX) 17 GM PACK PO SCH ×4 (05:49→23:24)
[2022-12-11 07:13] LABS: BUN Creatinine Ratio 24.5 (10-20); Calcium 8.9 mg/dl (8.6-10.3); Creatinine Clr Calc Pharmacy 80.6 ml/min; Est GFR (African American) 90.9 ml/min; Est GFR (Non-African American) 78.4 ml/min; Potassium 4.1 mmol/L (3.5-5.1)
[2022-12-11 07:15] LABS: Basophils # (auto) 0.01 K/uL (0-0.2); Basophils % (auto) 0.1 %; Hematocrit (blood only) 35.7 % (42.0-52.0); Hemoglobin 11.7 g/dl (14.0-18.0); Immature Granulocytes # (auto) 0.11 K/uL (0.01-0.20); Immature Granulocytes % (auto) 0.9 %; Lymphocytes # (auto) 1.28 K/uL (1.2-3.4); Lymphocytes % (auto) 10.3 %; Mean Corpuscular Hemoglobin 30.9 pg (25.0-34.0); Mean Corpuscular Hgb Conc 32.8 g/dL (32.0-36.0); Mean Corpuscular Volume 94.2 fL (80.0-100.0); Mean Platelet Volume 9.1 fL (9.4-12.4); Monocytes # (auto) 0.56 K/uL (0.11-0.59); Monocytes % (auto) 4.5 %; Neutrophils # (auto) 10.49 K/uL (1.40-6.50); Neutrophils % (auto) 84.2 %; Platelet Count 168 K/uL (130-400); RDW Coefficient of Variation 14.6 % (11.5-14.5); RDW Standard Deviation 50.5 fL (36.4-46.3); Red Blood Count 3.79 M/uL (4.70-6.10); White Blood Count 12.45 K/ul (4.8-10.8)
--- NOTE | 2022-12-11 07:59 | Orthopedic Progress Note ---
Date of Service December 11, 2022 Assessment & Plan (1) Neurogenic claudication due to lumbar spinal stenosis: Plan: At this time we will continue physical therapy monitor his JOSE DANIEL operatively discharge home tomorrow. Admission and Anticipated Discharge Date Admission Date: December 09, 2022 Subjective Back pain controlled left leg improved Physical Exam Physical Exam: Patient is in bed at the time. Is quite comfortable. Skin strength testing. Results & Data Vital Signs (Past 12 Hours) Vital Signs Temp Pulse Resp BP Pulse Ox O2 Del Method 12/10/22 21:26 36.8 C 84 18 128/81 94 Room Air
[2022-12-11] MEDS: CHOLECALCIFEROL 1,000 UNITS 25 MCG TAB PO SCH (09:00)
[2022-12-11] MEDS: ASPIRIN 81 MG ECTAB PO SCH (09:00)
[2022-12-11] MEDS: TOLTERODINE TARTRATE LA 4 MG CAPCR PO SCH (09:01)
[2022-12-11] MEDS: TOCOPHERYL, DL-ALPHA 400 UNITS 180 MG CAP PO SCH (09:01)
[2022-12-11] MEDS: MULTIVITAMIN TAB PO SCH (09:01)
[2022-12-11] MEDS: dexAMETHasone 6 MG in SYRINGE 0 ML IV SCH (09:02)
[2022-12-11] MEDS: METOPROLOL SUCC 25MG EXT REL TAB PO SCH (12:13)
--- NOTE | 2022-12-11 18:11 | Hospitalist Progress Note ---
Date of Service December 11, 2022 Assessment & Plan (1) Neurogenic claudication due to lumbar spinal stenosis: Plan: POD#2 L2-L3 decompression and fusion by Dr. Burris Remained stable overall Acute blood loss anemia, post surgical, expected, likely dilutional component as well EBL 150ml pre op 14.3, now 11.5 continue to monitor h/h Hemoglobin 11.7, stable Asymptomatic (2) CAD (coronary artery disease): Plan: History of multivessel CAD s/p multiple PCI. Follows with [facility] [place] cardiology. Per outpatient cardiology note: Cardiac cath 11/2021: Patent proximal LAD, diagonal stents, 35% mid LAD, 40% ostial/mid circumflex, patent distal LCx stent. Patent proximal to distal RCA stents with 35% mid ISR Cardiac cath/PCI 09/13/2018: Patent circumflex, RCA stents. PCI to first diagonal with 2.25 x 15 mm [place], PCI to ostial LAD due to possible guide dissection 2.75 x 8 [place] postdilated with 3.0 NC PCI 04/03/2017: Proximal to distal RCA 3.0 x 22, 2.75 x 30, 2.5 x 30 [place] PCI 04/09/2017: 2.25 x 22 m [place] to OM2 Continue ASA, statin. Resume Plavix at the discretion of spine Ortho. 12/11 Blood pressure not on the lower side anymore Resume metoprolol (3) Prostate cancer: Plan: S/p prostatectomy, radiation. Currently on Lupron injections. DVT PROPHYLAXIS Teds/SCDs as per spine Ortho Plan delayed entry date of service noted above Attending Addendum: care coordinated with JERZY López please refer to her notes for full details, I agree with her notes patient seen and examined, records reviewed by myself as well diagnoses and plan of care as per JERZY oJrge MD Admission and Anticipated Discharge Date Admission Date: December 09, 2022 Subjective ff up for s/p lumbar decomp, etc seen resting in bed, comfortable states he feels fine overall Bleeding the hallways with no problems, no chest pain, shortness of breath, palpitations, dizziness No abdominal pain, nausea vomiting No any other symptoms Review of Systems Review of Systems: all noted and negative except for above Physical Exam Physical Exam: General- oriented x 3, not in distress, speaks in sentences with no effort or accessory muscle use Eyes- anicteric Neck- no JVD Lungs- clear breath sounds bilaterally, no rales/wheezes Heart- normal rate, regular rhythm; no murmurs Abdomen- normal bowel sounds, nondistended, soft, nontender Extremities- no pretibial edema, no calf tenderness Neuro- alert, oriented x 3; no gross focal neurologic deficits Skin- warm & dry Results & Data Results & Data Vital Signs (Past 12 Hours) Vital Signs Temp Pulse Resp BP Pulse Ox O2 Del Method 12/11/22 16:11 36.8 C 88 16 145/74 H 94 Room Air 12/11/22 12:39 95 12/11/22 09:04 Room Air 12/11/22 07:57 36.4 C L 71 16 133/82 98 Room Air all noted and reviewed including below
[2022-12-11] MEDS: ATORVASTATIN 40 MG TAB PO SCH (20:02)
[2022-12-11] MEDS: DOCUSATE SODIUM/SENNA 50/8.6MG TAB PO SCH (20:02)
[2022-12-11 22:29] VITALS: TEMP 98.1
[2022-12-12] MEDS: ACETAMINOPHEN 500 MG TAB PO PRN (00:52)
[2022-12-12] MEDS: POLYETHYLENE (MIRALAX) 17 GM PACK PO SCH (06:40)
[2022-12-12 07:29] VITALS: BP 139/81; O2SAT 93
[2022-12-12] MEDS: METOPROLOL SUCC 25MG EXT REL TAB PO SCH (08:21)
[2022-12-12] MEDS: TOCOPHERYL, DL-ALPHA 400 UNITS 180 MG CAP PO SCH (08:21)
[2022-12-12] MEDS: MULTIVITAMIN TAB PO SCH (08:21)
[2022-12-12] MEDS: TOLTERODINE TARTRATE LA 4 MG CAPCR PO SCH (08:22)
[2022-12-12] MEDS: dexAMETHasone 6 MG in SYRINGE 0 ML IV SCH (08:22)
[2022-12-12] MEDS: CHOLECALCIFEROL 1,000 UNITS 25 MCG TAB PO SCH (08:22)
[2022-12-12] MEDS: ASPIRIN 81 MG ECTAB PO SCH (08:22)
--- NOTE | 2022-12-12 10:34 | Discharge Summary ---
Date of Service December 12, 2022 Admission HPI Per Admitting Provider This is a 77-year-old male who presents with chronic persistent back and bilateral leg pain. Failing since course of nonoperative care is here for surgical invention. Principal Diagnosis Lumbar spinal stenosis with neurogenic claudication Discharge Data Allergies Allergy/AdvReac Type Severity Reaction Status Date / Time Penicillins AdvReac Unknown "IMMUNE TO Verified 12/09/22 11:24 IT, DOESN'T WORK FOR ME" Consultations 12/09/22 16:34 Consult Hospitalist Routine Procedures Performed Operation Date: 12/09/22 12:25 Actual Procedures p L2-L3 Decompression and Fusion, Spinal Cord Monitoring(Not Applicable) - Simone Burris DO Ordered Studies 12/09/22 12:25 [place] lumbar spine 2-3V Routine Hospital Course (1) Neurogenic claudication due to lumbar spinal stenosis: Patient underwent lumbar decompression fusion tolerated this well was taken to orthopedic for postoperative. Postop day 1 he was up and ambulating progressed to postop day #2 on postop day #3 JOSE DANIEL drainage decreased appropriate. Excellent strength testing. Pain well controlled. Simply discharged home. Discharge orders instructions from the chart for further review. Total Time Total Time Spent Total Time Spent (In Minutes): 20 minutes Discharge Plan Discharge Items Patient Disposition: Home - Self-Care Reason For Visit: POSTOP Discharge Diagnosis: Lumbar spinal stenosis with neurogenic claudication Activity: As commented below Non-emergency contact: Primary Care Provider Call non-emergency contact if: you have any medication questions Follow-up/Referrals: Jennifer Biggs PA-C [Primary Care Provider] - Diet: Regular Addtl Attending Provider Instructions: ACTIVITY RECOMMENDATIONS: SELF CARE INSTRUCTIONS AFTER THORACIC/LUMBAR FUSIONS 1. You may walk to your tolerance. It is good exercise for your legs and back. Expect some back and intermittent leg aches and pains. 2. You may perform "counter-top" level activities (make a sandwich, toño with a project, etc.). 3. No bending or lifting of more than 10 pounds or back twisting of any nature (roll like a log when turning in bed). 4. You may ride in a car for 20-30 minutes at a time. No driving until after your first visit with your doctor. 5. Frequent changes of position and restricting sitting to 30 minutes at a time will help limit the amount of back spasms and stiffness you may experience. 6. You may discontinue the use of ambulatory aids (cane, crutches, etc.) once your strength and confidence allow. 7. 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 Do not take a tub bath, sit in a hot tub or go into a swimming pool until after your first recheck in the office. SPECIAL CARE INSTRUCTIONS: VERY IMPORTANT TO READ AND REVIEW A. Your surgical incision has been closed with a cosmetic suture under the skin that will dissolve in about 6 weeks. In 14 days, you can use a pair of clean scissors and cut the suture that is left outside of the skin at the ends of your incision. 1. The small skin tapes can be removed 7 days after surgery if they have not fallen off by that point. 2. You may keep the wound open to air as much as possible to promote healing after post-op day number 5 unless told otherwise by your doctor. 3. If you think the wound looks like it is becoming infected (redness or worsening drainage) and/or you are experiencing fever, chill or worsening back pain and muscle spasms, contact the office so that we may evaluate you as soon as possible. B. Complications are uncommon, but please contact us if you have any signs or symptoms of: 1. wound infection (fever higher than 102.5 degrees F, redness, separation of wound, drainage, or increasing pain from the incision) 2. blood clots in legs (pain, swelling, redness and warmth in legs) 3. urinary tract infection (fever higher than 102.5 degrees F, burning upon urination or increased frequency of urination) 4. nerve problems (inability to walk on your toes or heels, numbness, loss of bowel or bladder control) 5. any other symptoms that concern you C. Please call the office at if you have any concerns or questions about your operation or recovery. D. No smoking! Smoking drastically decreases the chance of a solid fusion. E. Do not take any anti-inflammatory medications (Indocin, Advil, Motrin, Aspirin, Naprosyn, etc.) as these may inhibit the chance of a solid fusion. Tylenol is okay to take for pain. MANAGING PAIN AFTER SPINAL SURGERY 1. Narcotic medication is intended for short-term use and will be provided for surgical pain. Surgical pain usually lasts for a period of 4-6 weeks. Narcotic medication includes Percocet, Vicodin, Darvocet, Tylenol #3 or Lortab. 2. Longer-term pain is more appropriately treated with non-narcotic medication such as Tylenol ES. 3. Muscle spasm is not appropriately treated with narcotics. Muscle relaxers such as Soma, Flexeril or Skelaxin can be used along with Tylenol ES. 4. Remember that we all live with some "aches and pains". This is not unusual or uncommon after an injury or as we get older. a. Back pain is expected and may include muscle spasms for 4 to 6 weeks after surgery. The pain should gradually improve. If the pain worsens for no apparent reason, please contact the office. b. Intermittent leg pain may also be experienced and should not be concerned about unless it worsens for no apparent reason. If so, please contact the office. 5. We will provide appropriate medication within the normal guidelines of their prescribed use. We will also be very cautious and aware of potential abuse and extended duration of patients' medication needs. a. Pain medications are for your comfort and to assist with sleep and rest so that the tissue can heal. They are not provided in order to return to normal activity and should not be used through the day. To do so or worsening pain at night can result from ongoing tissue damage and development of tolerance to the prescribed medicine. 6. Please allow 2-3 days to process refills. Prescriptions will not be mailed but must be picked up at the office. FOLLOW UP VISIT: Keep your scheduled follow-up appointment. Any questions, please call the office at . Pending Studies at Discharge: No Stand-Alone Forms: [facility], Smoking Cessation Medications and DC Order Prescriptions: New tramadol 50 mg tablet 50 mg PO Q6H PRN (Reason: pain, moderate) Qty: 30 0RF oxycodone 5 mg tablet 5 mg PO DAILY PRN (Reason: pain) Qty: 30 0RF Continued nitroglycerin 0.4 mg tablet, sublingual 0.4 mg Sublingual DIRECTED PRN (Reason: Chest Pain) Qty: 30 5RF biotin 5,000 mcg tablet,disintegrating 5,000 mcg PO QAM leuprolide (6 month) [Lupron Depot (6 Month)] 1 ea IM UD Rx Instructions: 1 ea IM every 6 months acetaminophen [Tylenol Arthritis Pain] 650 mg tablet extended release 1,300 mg PO TID tolterodine [Detrol LA] 4 mg capsule,extended release 24hr 4 mg PO QAM multivitamin Tablet 1 tab PO QAM vitamin E 400 unit Capsule 400 unit PO QAM cholecalciferol (vitamin D3) [Vitamin D3] 2,000 unit Capsule 2,000 unit PO QAM amoxicillin 500 mg capsule 2,000 mg PO ONCE PRN (Reason: pre dental) Patient Comments: TAKE 4 CAPSULES 1 HOUR PRIOR TO DENTAL APPOINTMENT clopidogrel 75 mg tablet 75 mg PO QAM metoprolol succinate 25 mg tablet extended release 24 hr 25 mg PO QAM aspirin 81 mg Tablet 81 mg PO DAILY Rx Instructions: while off Plavix for surgery atorvastatin [Lipitor] 80 mg tablet 80 mg PO QPM Discharge Orders: Discharge Order (Routine); Ordered 12/12/22 Ordered By: Simone Burris Admission Data Admit Date/Time: 12/09/22 14:43 Attending Provider: Simone Burris Admit Provider: Simone Burris Primary Care Provider: Jennifer Biggs Other Providers: Mary Lou Vazquez ; Justin Jorge
[2022-12-12 10:35] VITALS: PULSE 84
--- NOTE | 2022-12-12 16:25 | Hospitalist Progress Note ---
Date of Service December 12, 2022 Assessment & Plan (1) Neurogenic claudication due to lumbar spinal stenosis: Plan: POD#3 L2-L3 decompression and fusion by Dr. Burris Remains stable overall Acute blood loss anemia, post surgical, expected, likely dilutional component as well EBL 150ml pre op 14.3, now 11.5 continue to monitor h/h Hemoglobin 11.7, stable Asymptomatic (2) CAD (coronary artery disease): Plan: History of multivessel CAD s/p multiple PCI. Follows with [facility] cardiology. Per outpatient cardiology note: Cardiac cath 11/2021: Patent proximal LAD, diagonal stents, 35% mid LAD, 40% ostial/mid circumflex, patent distal LCx stent. Patent proximal to distal RCA stents with 35% mid ISR Cardiac cath/PCI 09/13/2018: Patent circumflex, RCA stents. PCI to first diagonal with 2.25 x 15 mm [place], PCI to ostial LAD due to possible guide dissection 2.75 x 8 [place] postdilated with 3.0 NC PCI 04/03/2017: Proximal to distal RCA 3.0 x 22, 2.75 x 30, 2.5 x 30 [place] PCI 04/09/2017: 2.25 x 22 m [place] to OM2 Continue ASA, statin. Resume Plavix at the discretion of spine Ortho. 12/12 Resume usual cardiac medications (3) Prostate cancer: Plan: S/p prostatectomy, radiation. Currently on Lupron injections. DVT PROPHYLAXIS Teds/SCDs as per spine Ortho Admission and Anticipated Discharge Date Admission Date: December 09, 2022 Subjective Follow-up for status post lumbar decompression surgery, etc. Seen sitting up in bedside chair, comfortable, not in distress In good spirits States he feels fine overall no chest pain, dyspnea, palpitations, dizziness Ambulating with no problems States he is ready for discharge today Review of Systems Review of Systems: all noted and negative except for above Physical Exam Physical Exam: General- oriented x 3, not in distress, speaks in sentences with no effort or accessory muscle use Eyes- anicteric Neck- no JVD Lungs- clear breath sounds bilaterally, no rales/wheezes Heart- normal rate, regular rhythm; no murmurs Abdomen- normal bowel sounds, nondistended, soft, nontender Extremities- no pretibial edema, no calf tenderness Neuro- alert, oriented x 3; no gross focal neurologic deficits Skin- warm & dry Results & Data Results & Data Vital Signs (Past 12 Hours) Vital Signs Temp Pulse Pulse Resp BP BP Pulse Ox 12/12/22 10:32 36.7 C 84 68 16 128/81 139/81 93 12/12/22 07:27 36.7 C 68 16 139/81 93 O2 Del Method 12/12/22 10:32 12/12/22 07:27 Room Air all noted and reviewed including below
== END 2022-12-12 11:25 | disposition home or self-care (01) | DRG 454 ==
LOC: ASU 10:50 → 3N 14:43